=== PATIENT | female | born 1935 | race Caucasian/White ===

== ENCOUNTER 2022-03-19 14:26 | Emergency (ER) | payer OTHER, SELFPAY ==
--- NOTE | ~2022-03-19 | CT_ITS ---
EXAMINATION: CT brain wo con INDICATION: Altered mental status COMPARISON: None TECHNIQUE: Standard unenhanced head CT. The dose-length product (DLP) was 605.33 mGy-cm. The mA was a djusted according to patient size. Iterative reconstruction technique was employed. FINDINGS: There is no acute intraparenchymal hemorrhage. No evidence of mass lesion. No evidence of a cute infarction. There is mild periventricular and subcortical hypodensity probably related to small vessel ischemic disease. There is moderate prominence of the sulci and ventricles related to cerebral atrophy. Intracranial calcified cerebral atherosclerosis is noted. There are no extra-axial collecti ons. There is no mass effect or midline shift. The orbits and soft tissues are unremarkable. The visu alized sinuses and mastoid air cells are well aerated. IMPRESSION: 1. No acute intracranial abnormality. 2. Age related findings. Reviewed, dictated and finalized at location B.
--- NOTE | 2022-03-19 14:32 | ECG_ITS ---
Measurements Intervals [place] Rate: 81 P: VT: 0 QRS: -17 QRSD: 86 T: 18 QT: 379 QTc: 441 Interpretive Statements ATRIAL FIBRILLATION NONSPECIFIC ST CHANGES LARGE AMOUNT OF BASELINE ARTIFACT PRESENT NO PREVIOUS ECG AVAILABLE FOR COMPARISON Electronically Signed On 03-20-2022 13:36:02 CDT by Adore Low M.D.
[2022-03-19 14:37] LABS: Glucose Point of Care 106 mg/dl (65-105)
[2022-03-19 14:54] VITALS: BP 159/71; PULSE 80; RESP 20; TEMP 36.8; O2SAT 97
--- NOTE | 2022-03-19 14:58 | ED.AMS ---
HPI - Altered Mental Status General Chief Complaint: Altered Mental Status Stated Complaint: unresponsive Time Seen by Provider: 03/19/22 14:43 Source: EMS Mode of arrival: EMS Limitations: no limitations History of Present Illness HPI narrative: Patient is an 86-year-old female brought in by EMS due to decreased responsiveness per [facility] staff but according to EMS when they arrived patient was alert and awake and responsive. [facility] staff states that patient was dancing earlier today, and when they checked up on her she was found slumped in a chair . Patient has a history of dementia and a poor historian. Review of Systems Review of Systems: All systems reviewed & are unremarkable except as noted in HPI and below ROS unobtainable: Yes other (Dementia) Constitutional: Constitutional: Reports as per HPI PMFSH Comments Past medical history: Dementia Family history: Unknown Social history: Unknown if patient ever smoked, lives at a [facility] Exam Const: General: cooperative, healthy appearing, comfortable, no acute distress, well developed, alert and awake Orientation/consciousness: oriented to person and oriented to place Limitations: no limitations HENMT: Head: normal to inspection, normocephalic and atraumatic Ears: hearing grossly normal bilaterally, TM normal on the right and TM normal on the left General nose exam: Normal external nose present, Normal nares present and No nasal discharge present Face and sinus: normal facial exam Mouth: Yes Normal oral and palatal mucosa present, Yes lip normal, Yes tongue normal and Yes oropharynx normal Throat: posterior oropharynx normal, tonsils normal and uvula midline Eyes: General: appearance normal, both eyes and all related structures Pupils: Equal, round and reactive pupils present EOM: EOMs intact bilaterally Neck: Neck: normal visual inspection, full ROM, no lymphadenopathy and no meningeal signs Chest: Chest palpation & inspection: normal inspection of the chest Resp: Effort & Inspection: normal respiratory effort, able to speak in complete sentences, no respiratory distress and not tachypneic Auscultation: clear to auscultation bilaterally, no crackles, no rales, no rhonchi and no wheezes Cardio: Rate: regular rate Rhythm: regular rhythm GI: Inspection: normal to inspection GI Palp: No abdominal tenderness, Yes Soft to palpation, No Tenderness to palpation present (GI), No Guarding due to palpation present (GI), No Rigid due to palpation and No Rebound tenderness present Auscultation: normal bowel sounds : General: Yes no CVA tenderness Back/Spine/Pelvis: Back: no CVA tenderness Skin: General skin exam: normal color, no rashes or lesions noted, elasticity normal and turgor normal Neuro: General: oriented to person, oriented to place, tone normal, moves all extremities, Normal light touch and pain sensation, no meningeal signs, no focal motor deficits, CN's II-XI intact bilaterally and No confusion Cranial nerves: Yes Equal, round and reactive pupils present Speech: No Abnormal speech present Sensory Exam: No Sensory deficit (Neuro) Extrem: General: normal to inspection, full ROM and capillary refill normal Psych: Appearance: grossly normal and well kempt Mental Status: mental status grossly normal Speech and movement: Normal speech and movement present Affect: normal affect Attitude: cooperative Course Course Emergency Course: Patient reexamined at 1700, patient alert awake and has no complaints. No episodes of unresponsiveness throughout her ER stay. Vital Signs Vital signs: Vital Signs Temperature 36.8 C 03/19/22 14:54 Pulse Rate 80 03/19/22 14:54 Respiratory Rate 20 03/19/22 14:54 Blood Pressure 159/71 H 03/19/22 14:54 Pulse Oximetry 97 03/19/22 14:54 Temperature 36.8 C 03/19/22 14:54 Pulse Rate 80 03/19/22 14:54 Respiratory Rate 20 03/19/22 14:54 Blood Pressure 159/71 H 03/19/22 14:54 Pulse Oximetry 97
[2022-03-19 15:10] LABS: Add Urine Microscopic? YES; Appearance Urine Cloudy (Clear); Bacteria Urine Trace /hpf; Bilirubin Urine Negative (Negative); Blood Urine Negative (Negative); Color Urine Yellow (Yellow); Glucose Urine UA Negative (Negative); Ketones Urine Negative (Negative); Leukocyte Esterase Ur 3+ LEU/UL (Negative); Mucus Urine Rare /lpf; Nitrate Urine Negative (Negative); Protein Urine Negative (Negative); RBC Urine 0-2 /hpf (0-2); Specific Grav Ur 1.005 (1.001-1.035); Squamous Epithelial Cell Urine Occasional /hpf (Few); Urobilinogen Urine Negative mg/dL (<2.0); WBC Urine 16-20 /hpf
[2022-03-19 15:45] LABS: Basophils Percent Auto 0.6 % (0.2-1.2); Eosinophils Absolute Auto 0.2 K/mm3 (0-0.3); Eosinophils Percent Auto 2.6 % (0-4.4); Hematocrit 43.8 % (37.0-47.0); Hemoglobin 14.2 g/dL (12.0-15.0); Immature Granulocyte Absolute 0.02 K/mm3 (0.00-0.031); Immature Granulocyte Percent A 0.3 % (0-0.5); Lymphocytes Absolute Auto 1.53 K/mm3 (0.9-3.2); Lymphocytes Percent Auto 23.8 % (18.3-44.2); Mean Corpuscular HGB Conc 32.4 g/dl (32-36); Mean Corpuscular Hemoglobin 31.1 pg (26-34); Mean Corpuscular Volume 96.1 fl (80-100); Mean Platelet Volume 10.2 fl (7.4-10.4); Monocytes Absolute Auto 0.4 K/mm3 (0.1-0.6); Monocytes Percent Auto 6.7 % (2.6-8.5); Neutrophils Absolute Auto 4.2 K/mm3 (1.3-6.7); Platelet Count Result 270 k/mm3 (150-375); Red Blood Count 4.56 M/mm3 (4.2-5.4); Red Cell Distribution Width 13.2 % (11.5-14.5); White Blood Count 6.4 K/mm3 (4.5-10.0)
--- NOTE | 2022-03-19 16:28 | PC.NURSE ---
tech attempted blood draw x2 without success. script writer obtained blood, however hemolyzed and needs redrawn. script writer attempted again, unsuccessfully. called noc engineer for assistance for redraw. spoke with adam and agrees to draw.
--- NOTE | 2022-03-19 16:33 | PC.NURSE ---
patient is alert to self. talking in full sentences, requesting bedpan often. no deficits noted
[2022-03-19 16:52] LABS: Prothrombin Time 13.1 Seconds (11.1-14.7)
[2022-03-19 16:53] LABS: Alanine Aminotransferase 23 U/L (4-35); Albumin Level 4.1 g/dL (3.5-5.1); Alkaline Phosphatase 142 U/L (38-126); Anion Gap 6 mmol/L (8-16); Aspartate Amino Transferase 36 U/L (14-36); Bilirubin,Total 0.4 mg/dL (0.2-1.3); Blood Urea Nitrogen 25 mg/dL (7-17); Calcium 8.9 mg/dL (8.4-10.2); Carbon Dioxide 32 mmol/L (22-30); Chloride 102 mmol/L (98-107); Estimated CRCL calculation 25 ml/min; Estimated Glomerular Filt Rate 43; Glucose 94 mg/dL (65-110); Sodium 140 mmol/L (137-145)
--- NOTE | 2022-03-19 17:14 | PC.NURSE ---
at 1713 spoke with alejandro hutchinson to arrange s transport nh return to [facility]
--- NOTE | 2022-03-19 17:18 | PC.NURSE ---
attempted to call [facility] to give report. spoke with [place] and no one was able to take report. update given to renuka, daughter.
--- NOTE | 2022-03-19 17:34 | PC.NURSE ---
food tray ordered for pt
[2022-03-19 18:18] VITALS: BP 174/82; PULSE 84; RESP 20; TEMP 36.2; O2SAT 98
== END 2022-03-19 18:22 ==
PROVIDERS: Emergency Medicine; Emergency Provider Emergency Medicine
DX: R41.82 Altered mental status, unspecified (principal); N39.0 Urinary tract infection, site not specified; F03.90 Unspecified dementia, unspecified severity, without behavioral disturbance, psychotic disturbance, mood disturbance, and anxiety; I48.91 Unspecified atrial fibrillation
CPT/HCPCS: 36415; 70450; 80053; 81001; 82948; 85025; 85610; 85730; 87077; 87086; 87186; 93005; 96365; 99284; J0696

== ENCOUNTER 2022-08-14 00:31 | Emergency (ER) | payer OTHER, SELFPAY ==
--- NOTE | ~2022-08-14 | CT_ITS ---
EXAMINATION: CT cervical spine wo con DATE: 08/14/2022 01:20 INDICATION: Neck pain after fall TECHNIQUE: Computed tomography (CT) of the cervical spine was performed without intravenous contrast. The dose-length product was 95 mGy-cm. Automated exposure control and iterative reconstruction techn ique were employed. COMPARISON: No prior studies for comparison. FINDINGS: Normal cervical lordosis. Vertebral body heights are maintained. There is mild multilevel d egenerative disc disease. There is mild multilevel uncinate and facet hypertrophy. Odontoid process w ithin normal limits. No evidence for perched facet. Craniovertebral junction is normal. There is aquino tid atherosclerosis. Lung apices are unremarkable. No significant paraspinal soft tissue abnormality. IMPRESSION: 1. No acute abnormality of the cervical spine. Reviewed, dictated and finalized at location A.
--- NOTE | ~2022-08-14 | XR_ITS ---
XR pelvis 1-2V 08/14/2022 01:27 Indication: Status post fall. Pelvic pain. Procedure: AP view of the pelvis Comparison: No prior studies for comparison. Findings: Pelvic rings are intact. There is osteoarthritis of the hips. There is lower lumbar spondyl osis. There are pelvic phleboliths. No acute fracture or traumatic malalignment. Impression: 1: No acute fracture. Reviewed, dictated and finalized at location A. Impression: 1: No acute fracture.
--- NOTE | ~2022-08-14 | XR_ITS ---
XR chest 1V portable 08/14/2022 01:27 Indication: Status post fall. Cough, wheezing and congestion. Sore throat. Procedure: AP view of the chest Comparison: No prior studies for comparison. Findings: Heart size upper normal. No focal air space disease, pulmonary edema, pleural effusion or s uspected pneumothorax. There is scoliosis. There is atherosclerosis and ectasia of the aorta. Impression: 1: No acute cardiopulmonary disease. Reviewed, dictated and finalized at location A. Impression: 1: No acute cardiopulmonary disease.
--- NOTE | ~2022-08-14 | CT_ITS ---
EXAMINATION: CT brain wo con DATE: 08/14/2022 01:19 INDICATION: Status post fall. Head injury. TECHNIQUE: Computed tomography (CT) of the head was performed without intravenous contrast. The dose- length product was 605.33 mGy-cm. COMPARISON: CT dated 03/19/2022 FINDINGS: Mild generalized brain parenchymal volume loss. There are scattered mild periventricular an d subcortical white matter changes, most likely related to small vessel ischemic disease (microangiop athy). No ventriculomegaly or midline shift. Basilar cisterns are patent. There is intracranial ather osclerosis. There is mucosal thickening of the left maxillary and ethmoid sinuses. Mastoids are pneum atized. No depressed skull fractures. There is hyperostosis frontalis interna. IMPRESSION: 1. No acute intracranial abnormality. Reviewed, dictated and finalized at location A.
[2022-08-14 00:43] VITALS: BP 130/84; PULSE 68; RESP 24; TEMP 36.4; O2SAT 100
--- NOTE | 2022-08-14 00:53 | ECG_ITS ---
Measurements Intervals [place] Rate: 70 P: 73 PA: 152 QRS: -21 QRSD: 89 T: -5 QT: 409 QTc: 443 Interpretive Statements SINUS RHYTHM SUPRAVENTRICULAR TRIGEMINY BORDERLINE ST-T WAVE ABNORMALITY- INFERIOR LEADS BASELINE ARTIFACT- I, III, AVL, V2 ABNORMAL ECG COMPARED TO ECG 03/19/2022 14:34:16 SINUS RHYTHM NOW PRESENT Electronically Signed On 08-14-2022 8:52:04 CDT by Jose Roberto Rolon D.O.
[2022-08-14 01:47] LABS: Basophils Percent Auto 0.4 % (0.2-1.2); Eosinophils Absolute Auto 0.2 K/mm3 (0-0.3); Eosinophils Percent Auto 3.1 % (0-4.4); Hematocrit 38.5 % (37.0-47.0); Hemoglobin 12.7 g/dL (12.0-15.0); Immature Granulocyte Absolute 0.05 K/mm3 (0.00-0.031); Immature Granulocyte Percent A 0.7 % (0-0.5); Lymphocytes Absolute Auto 2.47 K/mm3 (0.9-3.2); Lymphocytes Percent Auto 32.4 % (18.3-44.2); Mean Corpuscular Hemoglobin 32.1 pg (26-34); Mean Corpuscular Volume 97.2 fl (80-100); Mean Platelet Volume 9.6 fl (7.4-10.4); Monocytes Absolute Auto 0.4 K/mm3 (0.1-0.6); Monocytes Percent Auto 5.6 % (2.6-8.5); Neutrophils Absolute Auto 4.4 K/mm3 (1.3-6.7); Neutrophils Percent Auto 57.8 % (45.5-73.1); Platelet Count Result 280 k/mm3 (150-375); Red Blood Count 3.96 M/mm3 (4.2-5.4); Red Cell Distribution Width 13.6 % (11.5-14.5); White Blood Count 7.6 K/mm3 (4.5-10.0)
[2022-08-14 02:03] LABS: Anion Gap 10 mmol/L (8-16); Blood Urea Nitrogen 27 mg/dL (7-17); Calcium 8.8 mg/dL (8.4-10.2); Carbon Dioxide 30 mmol/L (22-30); Chloride 101 mmol/L (98-107); Estimated Glomerular Filt Rate 47; Glucose 99 mg/dL (65-110); Potassium 3.7 mmol/L (3.4-5.0); Sodium 141 mmol/L (137-145)
--- NOTE | 2022-08-14 02:56 | ED.FALL ---
HPI - Fall General Chief Complaint: Fall <Karely Zuluaga PA-C - Last Filed: 08/14/22 03:36> Stated Complaint: FALL, HEAD INJURY <Karely Zuluaga PA-C - Last Filed: 08/14/22 03:36> Time Seen by Provider: 08/14/22 00:40 <Karely Zuluaga PA-C - Last Filed: 08/14/22 03:36> Source: patient <PEYTON Rodríguez Last Filed: 08/14/22 03:36> Mode of arrival: wheelchair <PEYTON Rodríguez Last Filed: 08/14/22 03:36> Limitations: dementia <Karely Zuluaga PA-C - Last Filed: 08/14/22 03:36> History of Present Illness HPI Narrative: This is an 86-year-old female that presents to the emergency department after a fall at her nursing facility today. Reportedly patient had an unwitnessed fall. She was found seated on the floor. Patient is reporting a head injury and headache. Otherwise she has no localizing complaints. Denies chest pain, abdominal pain, or joint pain. <Karely Zuluaga PA-C - Last Filed: 08/14/22 03:36> Related Data Allergies/Adverse Reactions: Allergies Allergy/AdvReac Type Severity Reaction Status Date / Time nitrofurantoin Allergy Unknown Other Verified 08/14/22 04:51 [From Macrobid] Sulfa (Sulfonamide Allergy Unknown Other Verified 08/14/22 04:51 Antibiotics) <PEYTON Rodríguez Last Filed: 08/14/22 03:36> Review of Systems Review of Systems: CONSTITUTIONAL: Denies fever CARDIOVASCULAR: Denies chest pain GASTROINTESTINAL: Denies vomiting MUSCULOSKELETAL: Denies back pain, joint pain, or myalgia. NEUROLOGIC: Reports headache <PEYTON Rodríguez Last Filed: 08/14/22 03:36> All systems reviewed & are unremarkable except as noted in HPI and below <PEYTON Rodríguez Last Filed: 08/14/22 03:36> [facility] Past Medical History Medical History: Medical History (Updated 09/24/22 @ 04:47 by Kathrine Perez MD) History of dementia History of hypertension <Karely Zuluaga PA-C - Last Filed: 08/14/22 03:36> Social History Social History: Social History (Updated 08/14/22 @ 03:32 by Karely Zuluaga PA-C) Smoking status: Never smoker <Karely Zuluaga PA-C - Last Filed: 08/14/22 03:36> Exam Narrative: GENERAL: Elderly, well-nourished, and in no acute distress. HEAD: Normocephalic. Old bruising noted over the left side of the forehead EYES: PERRLA and EOMI. ENT: Nares clear, no rhinorrhea or epistaxis. Mucous membranes moist. Oropharynx without tonsillar hypertrophy exudate or other lesions. Bilateral TMs pearly scales non-bulging NECK: Supple. No adenopathy or masses. CHEST: Clear to auscultation. No respiratory distress. No wheezes rales or rhonchi HEART: Regular rate and rhythm. No murmur heard. Normal peripheral pulses. BACK: No midline thoracic or lumbar spine tenderness EXTREMITIES: Normal range of motion. No edema or obvious deformity SKIN: Warm, dry, no rash. NEURO: No focal deficits. Alert and oriented x1. PSYCH: Normal mood and affect <Karely Zuluaga PA-C - Last Filed: 08/14/22 03:36> Course Reevaluation(s) Reevaluation #1: Signed out pending imaging and UA. UA is c/w UTI, I did assess pt she denies any back pain and on exam has no flank tenderness. Also has no WBC or fever. Therefore low c/f pyelo. Pt is allergic to macrobid, sulfa, augmentin per [place] paperwork so I will start cipro. Signed out pending final imaging interpretation. <Kathrine Perez MD - Last Filed: 08/14/22 14:51> Vital Signs Vital signs: Vital Signs Temperature 97.5 F L 08/14/22 00:43 Pulse Rate 68 08/14/22 00:43 Respiratory Rate 24 H 08/14/22 00:43 Blood Pressure 130/84 08/14/22 00:43 Pulse Oximetry 100 08/14/22 00:43 Oxygen Delivery Room Air 08/14/22 00:43 Temperature 97.5 F L 08/14/22 00:43 Pulse Rate 68 08/14/22 07:49 Respiratory Rate 18 08/14/22 07:49 Blood Pressure 140/70 08/14/22 07:49 Pulse Oximetry 98 08/14/22 07:49 Oxygen Delivery Room Air 08/14/22 00:43 <Karely Zuluaga
[2022-08-14 03:48] LABS: Appearance Urine Clear (Clear); Bilirubin Urine Negative (Negative); Color Urine Yellow (Yellow); Glucose Urine UA Negative (Negative); Ketones Urine Negative (Negative); Leukocyte Esterase Ur 3+ LEU/UL (Negative); Nitrate Urine Positive (Negative); Protein Urine Negative (Negative); Urobilinogen Urine 0.2 mg/dL (<2.0)
[2022-08-14 03:54] LABS: Bacteria Urine Trace /hpf; Mucus Urine Rare /lpf; WBC Clumps Urine Present /HPF; WBC Urine 51-75 /hpf
[2022-08-14 03:55] LABS: Add Urine Microscopic? YES; Blood Urine Trace-Intact (Negative)
[2022-08-14 04:24] VITALS: BP 142/49; PULSE 73; RESP 17; O2SAT 98
[2022-08-14 05:24] VITALS: BP 132/84; PULSE 79; RESP 18; O2SAT 98
[2022-08-14] MEDS: CIPROFLOXACIN 250 MG TABLET PO (05:25)
--- NOTE | 2022-08-14 06:12 | PC.NURSE ---
Patient report given to RN at facility. THis RN asked for her name and she states, Are you really going to send her back to us? THis RN replied that the patient was being discharged and an ambulance will be transporting her back to the facility. Then the facility hung up the phone on this RN.
[2022-08-14 07:08] VITALS: BP 140/70; PULSE 68; RESP 18; O2SAT 96
[2022-08-14 07:49] VITALS: BP 140/70; PULSE 68; RESP 18; O2SAT 98
== END 2022-08-14 07:53 ==
PROVIDERS: Physician Assistant; Emergency Provider Emergency Medicine; PCP Family Medicine
DX: S09.90XA Unspecified injury of head, initial encounter (principal); N39.0 Urinary tract infection, site not specified; F03.90 Unspecified dementia, unspecified severity, without behavioral disturbance, psychotic disturbance, mood disturbance, and anxiety; I10 Essential (primary) hypertension; R00.8 Other abnormalities of heart beat; R94.31 Abnormal electrocardiogram [ECG] [EKG]; W19.XXXA Unspecified fall, initial encounter
CPT/HCPCS: 36415; 70450; 71045; 72125; 72170; 80048; 81001; 85025; 87077; 87086; 87186; 93005; 99284; A9270

== ENCOUNTER 2022-08-22 17:55 | Emergency (ER) | payer OTHER, SELFPAY ==
--- NOTE | ~2022-08-22 | CT_ITS ---
EXAMINATION: CT brain wo con DATE: 08/22/2022 18:57 INDICATION: ams . TECHNIQUE: Computed tomography (CT) of the head was performed without intravenous contrast. The mA wa s adjusted according to patient size. Iterative reconstruction technique was employed. The dose-lengt h product was 605.33 mGy-cm. COMPARISON: 08/14/2022 FINDINGS: No acute intracranial hemorrhage or extra-axial fluid collection. No hydrocephalus, mass, or herniation. No acute ischemic infarct. Unremarkable dural venous sinus attenuation. No acute osseous abnormality. Hyperostosis frontalis. Left maxillary mucosal thickening, the remaining spaces are clear. Mild chronic white matter change and atrophy. Atherosclerotic intracranial calcifications. IMPRESSION: No acute intracranial process. Reviewed, dictated and finalized at location K.
--- NOTE | 2022-08-22 18:07 | ED.GENADULT ---
HPI - General Adult General Chief complaint: Altered Mental Status <PEYTON Mckeon Last Filed: 08/23/22 01:35> Stated complaint: unresponsive episode <PEYTON Mckeon Last Filed: 08/23/22 01:35> Time Seen by Provider: 08/22/22 18:07 <PEYTON Mckeon Last Filed: 08/23/22 01:35> Source: patient, EMS and old records reviewed <PEYTON Mckeon Last Filed: 08/23/22 01:35> Mode of arrival: EMS <PEYTON cMkeon Last Filed: 08/23/22 01:35> Limitations: dementia <PEYTON Mckeon Last Filed: 08/23/22 01:35> History of Present Illness HPI narrative: Patient is an 86 y/o female who presents to the ED via EMS with report of AMS. Patient is a resident [facility]. Per EMS report staff found patient in her room unresponsive, only responding to painful stimuli. She was then sent here. Patient alert and oriented to herself upon arrival to the ED. Per her records, this is her baseline. She does have a history of dementia. Patient denying any acute complaints at this time. <PEYTON Mckeon Last Filed: 08/23/22 01:35> Related Data Allergies/adverse reactions: Allergies Allergy/AdvReac Type Severity Reaction Status Date / Time nitrofurantoin Allergy Unknown Other Verified 08/23/22 00:33 [From Macrobid] Sulfa (Sulfonamide Allergy Unknown Other Verified 08/23/22 00:33 Antibiotics) <PEYTON Mckeon Last Filed: 08/23/22 01:35> Review of Systems Review of Systems: ROS unobtainable: Yes unobtainable due to mental status <PEYTON Mckeon Last Filed: 08/23/22 01:35> [facility] Past Medical History Medical History: Medical History (Updated 08/24/22 @ 00:00 by Background Daemon) Anxiety History of dementia History of hypertension <Darlene Dorman PA-C - Last Filed: 08/23/22 01:35> Surgical History Surgical History: Surgical History (Updated 08/22/22 @ 20:01 by Darlene Dorman PA-C) No pertinent past surgical history <Darlene Dorman PA-C - Last Filed: 08/23/22 01:35> Social History Social History: Social History (Updated 08/22/22 @ 20:02 by Darlene Dorman PA-C) Smoking status: Never smoker Living arrangements: senior living <Darlene Dorman PA-C - Last Filed: 08/23/22 01:35> Exam Narrative: GENERAL: Elderly, thin, non-toxic, in no acute distress. HEAD: Normocephalic, atraumatic. EYES: PERRL/EOMI, conjunctivae clear bilaterally. No nystagmus. NECK: Supple. No adenopathy, no masses. RESPIRATORY: Airway patent, respirations nonlabored. Clear to auscultation bilaterally, no rales, rhonchi, wheezing. CARDIOVASCULAR: Regular rate and rhythm without murmurs, rubs, or gallops. Peripheral pulses 2+ and equal bilaterally. ABDOMINAL: Soft, no significant tenderness to palpation, no hepatosplenomegaly. Normoactive BS. MUSCULOSKELETAL: Moves all extremities. Strength/ROM intact. Diffuse venous stasis changes and 1+ edema to lower legs bilaterally. Some redness, but no warmth, wounds. SKIN: Warm, dry, normal color. No rashes. NEURO: A&O X1. Answers some questions. Follows some commands. Moves all extremities. Cranial nerves II-XII grossly intact. No ataxic movements. Equal airborne mission systems superintendent strength bilaterally. PSYCHIATRIC: Appropriate mood and affect. Normal interaction. <Darlene Dorman PA-C - Last Filed: 08/23/22 01:35> Course Course Emergency Course: For this patient encounter, I reviewed the ACADEMY DIRECTOR or PA documentation, treatment plan, and medical decision making <Theodore Neil MD - Last Filed: 08/24/22 00:11> Vital Signs Vital signs: Vital Signs Pulse Rate 72 08/22/22 18:14 Respiratory Rate 28 H 08/22/22 18:14 Pulse Oximetry 99 08/22/22 18:14 Oxygen Delivery Room Air 08/22/22 18:14 Temperature 97.6 F 08/22/22 18:33 Pulse Rate 67 08/22/22 18:33 Respiratory Rate 28
--- NOTE | 2022-08-22 18:08 | ECG_ITS ---
Measurements Intervals [place] Rate: 70 P: 41 MN: 160 QRS: -26 QRSD: 97 T: 6 QT: 412 QTc: 447 Interpretive Statements BASELINE ARTIFACT/REDUCED ECG QUALITY SINUS RHYTHM WITH FREQUENT SUPRAVENTRICULAR PREMATURE COMPLEXES NONSPECIFIC T-WAVE ABNORMALITY COMPARED TO ECG 08/14/2022 02:20:41 NO SIGNIFICANT CHANGE Electronically Signed On 08-23-2022 14:38:23 CDT by Brando Tiwari M.D.
[2022-08-22 18:14] VITALS: PULSE 72; RESP 28; O2SAT 99
[2022-08-22 18:33] VITALS: BP 134/52; PULSE 67; TEMP 36.4
--- NOTE | 2022-08-22 19:22 | PC.NURSE ---
Patient is alert and oriented x1; EMS reported her baseline mentation as A&Ox1.
[2022-08-22 19:28] LABS: Basophils Percent Auto 0.6 % (0.2-1.2); Eosinophils Absolute Auto 0.2 K/mm3 (0-0.3); Eosinophils Percent Auto 2.6 % (0-4.4); Hematocrit 39.7 % (37.0-47.0); Hemoglobin 13.3 g/dL (12.0-15.0); Immature Granulocyte Absolute 0.01 K/mm3 (0.00-0.031); Immature Granulocyte Percent A 0.2 % (0-0.5); Lymphocytes Absolute Auto 1.95 K/mm3 (0.9-3.2); Lymphocytes Percent Auto 29.9 % (18.3-44.2); Mean Corpuscular HGB Conc 33.5 g/dl (32-36); Mean Corpuscular Volume 95.4 fl (80-100); Mean Platelet Volume 9.7 fl (7.4-10.4); Monocytes Absolute Auto 0.5 K/mm3 (0.1-0.6); Monocytes Percent Auto 8.1 % (2.6-8.5); Neutrophils Absolute Auto 3.8 K/mm3 (1.3-6.7); Neutrophils Percent Auto 58.6 % (45.5-73.1); Platelet Count Result 335 k/mm3 (150-375); Red Blood Count 4.16 M/mm3 (4.2-5.4); Red Cell Distribution Width 14.2 % (11.5-14.5); White Blood Count 6.5 K/mm3 (4.5-10.0)
[2022-08-22 19:37] LABS: Lactic Acid Reflex 1.4 mmol/L (0.7-2.0)
[2022-08-22 19:38] LABS: Alanine Aminotransferase 28 U/L (6-35); Alkaline Phosphatase 149 U/L (38-126); Anion Gap 8 mmol/L (8-16); Aspartate Amino Transferase 32 U/L (14-36); Bilirubin,Total 0.4 mg/dL (0.2-1.3); Blood Urea Nitrogen 34 mg/dL (7-17); Calcium 8.9 mg/dL (8.4-10.2); Carbon Dioxide 27 mmol/L (22-30); Chloride 101 mmol/L (98-107); Estimated Glomerular Filt Rate 43; Glucose 102 mg/dL (65-110); Potassium 4.1 mmol/L (3.4-5.0); Sodium 136 mmol/L (137-145)
[2022-08-22 19:40] LABS: Creatine Kinase 54 U/L (30-135)
[2022-08-22 19:50] LABS: Troponin I < 0.012 ng/mL (0.000-0.034)
[2022-08-22 21:12] LABS: Appearance Urine Clear (Clear); Bilirubin Urine Negative (Negative); Blood Urine Negative (Negative); Color Urine Yellow (Yellow); Glucose Urine UA Negative (Negative); Ketones Urine Negative (Negative); Leukocyte Esterase Ur Negative LEU/UL (Negative); Nitrate Urine Negative (Negative); Protein Urine Negative (Negative); Specific Grav Ur 1.015 (1.001-1.035); Urobilinogen Urine 0.2 mg/dL (<2.0)
[2022-08-22 21:22] LABS: Add Urine Microscopic? NO
--- NOTE | 2022-08-22 23:34 | PC.NURSE ---
Report to ROSANA Aguilar @ [facility].
--- NOTE | 2022-08-22 23:38 | PC.NURSE ---
Per [facility], ETA for BLS truck is 0100.
== END 2022-08-23 03:30 ==
PROVIDERS: Physician Assistant; Emergency Provider Emergency Medicine; PCP Family Medicine
DX: R41.82 Altered mental status, unspecified (principal); F03.90 Unspecified dementia, unspecified severity, without behavioral disturbance, psychotic disturbance, mood disturbance, and anxiety; I10 Essential (primary) hypertension; F41.9 Anxiety disorder, unspecified
CPT/HCPCS: 36415; 70450; 80053; 81003; 82550; 83605; 84484; 85025; 93005; 99284

== ENCOUNTER 2023-04-08 05:24 | Inpatient (IN) | payer MEDICARE, MEDICAID, SELFPAY ==
[2023-04-08] VITALS (13 sets, daily range): BP systolic 116–160; BP diastolic 53–91; PULSE 57–124; RESP 14–26; TEMP 36.5–36.6; O2SAT 92–98; BMI 19.6
--- NOTE | ~2023-04-08 | US_ITS ---
EXAMINATION: US venous doppler [facility] DATE: 04/09/2023 12:37 INDICATION: Bilateral lower limb swelling TECHNIQUE: Anand scale images without and with compression and Doppler images of the bilateral lower e xtremity veins were obtained. COMPARISON: None FINDINGS: The right common femoral vein, profunda femoral vein, femoral vein, popliteal vein, peroneal trunk, p osterior tibial veins, and greater saphenous vein are patent. There is thrombosis in the left popliteal and peroneal veins. The left common femoral vein, profunda femoral vein, femoral vein, posterior tibial veins, and greater saphenous vein are patent. IMPRESSION: 1. Thrombosis in the left popliteal and peroneal veins. These findings were discussed with the patien t's nurse, Eleonora on [address] [place] [address], at 1248 hours on 04/09/2023. Reviewed, dictated and finalized at location A. IMPRESSION: 1. Thrombosis in the left popliteal and peroneal veins. These findings were dis cussed with the patient's nurse, Eleonora on [address] [place], [place] [address], at 1248 hours on 04/09/20 23.
--- NOTE | ~2023-04-08 | XR_ITS ---
EXAMINATION: XR surgery orthopedic DATE: 04/11/2023 16:13 INDICATION: Left hip pinning TECHNIQUE: 3 fluoroscopic images of the left hip were obtained during procedure performed by Dr. Flo dalton. Radiologist was not present for the imaging or procedure. The amount of fluoroscopy time used during this procedure was 1.4 minutes. COMPARISON: 04/08/2023 FINDINGS: Previously seen nondisplaced, laterally impacted subcapital fracture of the proximal left femur has b een fixed with 3 cannulated lag screws. The tips of the screws do not project beyond the margins of t he articular cortex of the femoral head. Alignment remains unchanged. No new fractures identified. 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 IMPRESSION: 1. Fluoroscopy utilized during lag screw fixation of a nondisplaced slightly impacted subcapital frac ture of the proximal left femur. Reviewed, dictated and finalized at location A. IMPRESSION: 1. Fluoroscopy utilized during lag screw fixation of a nondisplaced slightly im pacted subcapital fracture of the proximal left femur.
--- NOTE | ~2023-04-08 | XR_ITS ---
XR hip BI 2V w AP pelvis 04/08/2023 09:09 Indication: Status post fall. Confusion. Left hip pain. Procedure: AP pelvis and 2 views each hip Comparison: 08/14/2022 Findings: There is a nondisplaced subcapital fracture of the left femur. Pelvic rings are intact. The re is moderate lower lumbar spondylosis. No other fractures are seen. There is atherosclerosis. Impression: 1: Nondisplaced subcapital fracture of the left femur. Reviewed, dictated and finalized at location B. Impression: 1: Nondisplaced subcapital fracture of the left femur.
--- NOTE | ~2023-04-08 | CT_ITS ---
Noncontrast CT scan of the cervical spine Technique: Multiple contiguous axial [address] images of the cervical spine were obtained and rec onstructed in 2D sagittal and coronal planes on the acquisition scanner. Dose reduction technique was used on this scan by utilizing automated exposure control, adjustment of the mA and/or kV according to patient size. Clinical History: Pain COMPARISON: 08/14/2022 Findings: No fractures or dislocations. There are extensive facet joint degenerative changes through out the cervical spine. There is probable partial fusion across the bilateral facet joints at the C4- C5 level. There is bilateral neural foraminal narrowing at C3-C4. There is probable bilateral neural foraminal narrowing at C5-C6 and C6-C7. The intervertebral disc spaces are preserved. No prevertebra l soft tissue swelling. Impression: No fracture or subluxation of the cervical spine. Moderate degenerative spondylosis, as above. Reviewed, dictated and finalized at [facility]. Impression: No fracture or subluxation of the cervical spine. Moderate degenerative spondylosis, as above.
--- NOTE | ~2023-04-08 | XR_ITS ---
EXAMINATION: XR chest 1V portable 04/08/2023 10:19 INDICATION: Preop PROCEDURE: AP portable chest COMPARISON: 08/14/2022 FINDINGS: The lungs are clear. The cardiomediastinal silhouette is within normal limits. There are no pleural effusions. There is no pneumothorax suspected. There is atherosclerosis of the aorta. No acute osseous abnormality. IMPRESSION: 1: NO ACUTE CARDIOPULMONARY DISEASE. Reviewed, dictated and finalized at location B.
--- NOTE | ~2023-04-08 | CT_ITS ---
CT head without contrast Indication: Dementia, status post fall COMPARISON: 08/22/2022 Technique: Serial scans were obtained through the brain without the administration of contrast. Dose reduction technique was used on this scan by utilizing automated exposure control and iterative recon struction technique. The dose-length product (DLP) was 605.33 mGy-cm. Findings: There is no evidence of intracranial hemorrhage, mass lesion, or acute infarct. The ventri cles and subarachnoid spaces are dilated, consistent with mild to moderate atrophy. Low attenuation regions are seen within the periventricular white matter bilaterally, likely representing changes fro m chronic microvascular ischemic disease. There is no evidence of edema, mass effect or midline shif t. The visualized paranasal sinuses and mastoid air cells are clear. Impression: No intracranial hemorrhage, mass, or acute infarct. Atrophy and chronic white matter changes, as above. Reviewed, dictated and finalized at location . Impression: No intracranial hemorrhage, mass, or acute infarct. Atrophy and chronic white matter changes, as above.
--- NOTE | 2023-04-08 07:19 | PC.NURSE ---
Upon BSSR, pt found standing at bedside, pt assisted to bed and was tearful and stating she wanted to go home. Bed alarm placed under pt.
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
--- NOTE | 2023-04-08 10:07 | ECG_ITS ---
Measurements Intervals [place] Rate: 116 P: 59 CT: 128 QRS: -32 QRSD: 85 T: 48 QT: 305 QTc: 424 Interpretive Statements SINUS TACHYCARDIA ATRIAL PREMATURE COMPLEXES LEFT AXIS DEVIATION BASELINE ARTIFACT- I, II, III, AVR, AVL, AVF, V1 ABNORMAL ECG COMPARED TO ECG 08/22/2022 18:31:05 SINUS TACHYCARDIA NOW PRESENT LEFT-AXIS DEVIATION NOW PRESENT Electronically Signed On 04-08-2023 11:49:08 CDT by Jose Roberto Rolon D.O.
--- NOTE | 2023-04-08 10:08 | ED.FALL ---
HPI - Fall General Chief Complaint: Fall Stated Complaint: fall, hip pain Time Seen by Provider: 04/08/23 07:17 Source: EMS Mode of arrival: EMS Limitations: dementia History of Present Illness HPI Narrative: Patient brought to the emergency room by ambulance from intermediate with left hip pain after a fall. Patient uses a walker, went to the bathroom and later found on the floor with left hip pain. No weakness. History of itching skin rash for months, possible scabies, not improving on scabies medication or prednisone. MD complaint: fall Related Data Home Medications Medication Instructions Recorded Confirmed Preparation H 1 inch RECTAL PRN PRN Hemorrhoids 04/08/23 04/08/23 acetaminophen 325 mg tablet 325 mg PO PRN PRN Pain, Mild 04/08/23 04/08/23 amlodipine 5 mg tablet 5 mg PO DAILY 04/08/23 04/08/23 aspirin 81 mg tablet 81 mg PO DAILY 04/08/23 04/08/23 benzonatate 100 mg capsule 100 mg PO PRN PRN Cough 04/08/23 04/08/23 buspirone 5 mg tablet 5 mg PO BID 04/08/23 04/08/23 cholecalciferol (vitamin D3) 25 25 mcg PO DAILY 04/08/23 04/08/23 mcg (1,000 unit) tablet (Vitamin D3) clobetasol 0.05 % topical cream 1 applic topical BID 04/08/23 04/08/23 colchicine 0.6 mg tablet 0.6 mg PO DAILY 04/08/23 04/08/23 cranberry extract 425 mg capsule 425 mg PO DAILY 04/08/23 04/08/23 famotidine 10 mg tablet 10 mg PO BID 04/08/23 04/08/23 furosemide 40 mg tablet 40 mg PO DAILY 04/08/23 04/08/23 ketoconazole 2 % topical cream 1 applic topical BID 04/08/23 04/08/23 losartan 50 mg tablet 50 mg PO BID 04/08/23 04/08/23 melatonin 5 mg tablet 5 mg PO DAILY 04/08/23 04/08/23 metoprolol succinate 50 mg 50 mg PO DAILY 04/08/23 04/08/23 tablet,extended release 24 hr montelukast 10 mg tablet 10 mg PO DAILY 04/08/23 04/08/23 multivitamin with minerals (Daily 1 tablet PO DAILY 04/08/23 04/08/23 Multivitamin-Minerals tablet) mupirocin 2 % topical ointment 1 applic topical PRN PRN BLE 04/08/23 04/08/23 redness permethrin 5 % topical cream 1 applic topical WEEKLY 04/08/23 04/08/23 sennosides 8.6 mg tablet 8.6 mg PO PRN PRN Constipation 04/08/23 04/08/23 Allergies Allergy/AdvReac Type Severity Reaction Status Date / Time nitrofurantoin Allergy Unknown Other Verified 08/23/22 00:33 [From Macrobid] Sulfa (Sulfonamide Allergy Unknown Other Verified 08/23/22 00:33 Antibiotics) amoxicillin [From Augmentin] Allergy Unknown Verified 04/08/23 05:34 clavulanic acid Allergy Unknown Verified 04/08/23 05:34 [From Augmentin] prochlorperazine Allergy Unknown Verified 04/08/23 05:34 [From Compazine] Review of Systems Review of Systems: ROS unobtainable: Yes unobtainable due to mental status PMFSH Past Medical History Medical History Dementia Depression with anxiety Gastroesophageal reflux disease Gout Hypertension Surgical History Surgical History No pertinent past surgical history Family History Family History (Updated 04/08/23 @ 23:15 by Diana Rahman PA-C) Other Family history unknown Social History Social History Social History: Surrogate medical decision maker: Agapito Betancourt or Cynthia Lyles (children). Code status: Full code. Smoking status: Never smoker Alcohol intake: never Substance use: never Lack of Transportation: No Lack of Food: Never True Current Housing: I Have Housing Concerned About Future Housing: No Difficulty Paying Gas/Electric Bills: No Difficulty Paying for Meds: No Currently Unemployed: No Education: Don't Know Difficulty w/ Childcare or Family Care: No Living arrangements: intermediate Spiritual care concerns: No Exam Narrative: General appearance: Well-developed, well-nourished Skin: Papular skin rash Head: Normocephalic, nontraumatic Eyes: Clear conjunctiva
[2023-04-08] MEDS: MORPHINE SULFATE (*CRX) 2 MG/ML INJ IV PUSH (10:51)
[2023-04-08 11:10] LABS: Basophils Percent Auto 0.2 % (0.2-1.2); Eosinophils Absolute Auto 0.1 K/mm3 (0-0.3); Eosinophils Percent Auto 0.6 % (0-4.4); Hematocrit 41.6 % (37.0-47.0); Hemoglobin 13.7 g/dL (12.0-15.0); Immature Granulocyte Absolute 0.05 K/mm3 (0.00-0.031); Immature Granulocyte Percent A 0.4 % (0-0.5); Lymphocytes Absolute Auto 0.71 K/mm3 (0.9-3.2); Lymphocytes Percent Auto 5.8 % (18.3-44.2); Mean Corpuscular HGB Conc 32.9 g/dl (32-36); Mean Corpuscular Hemoglobin 32.5 pg (26-34); Mean Corpuscular Volume 98.8 fl (80-100); Mean Platelet Volume 9.9 fl (7.4-10.4); Monocytes Absolute Auto 0.6 K/mm3 (0.1-0.6); Monocytes Percent Auto 5.2 % (2.6-8.5); Neutrophils Absolute Auto 10.7 K/mm3 (1.3-6.7); Neutrophils Percent Auto 87.8 % (45.5-73.1); Platelet Count Result 263 k/mm3 (150-375); Red Blood Count 4.21 M/mm3 (4.2-5.4); White Blood Count 12.2 K/mm3 (4.5-10.0)
[2023-04-08 11:14] LABS: Appearance Urine Cloudy (Clear); Bacteria Urine 4+ /hpf; Bilirubin Urine Negative (Negative); Blood Urine Negative (Negative); Color Urine Yellow (Yellow); Glucose Urine UA Negative (Negative); Ketones Urine Negative (Negative); Leukocyte Esterase Ur Negative LEU/UL (Negative); Nitrate Urine Negative (Negative); Non Pathogenic Casts 0-2; Protein Urine Negative (Negative); RBC Urine 0-2 /hpf (0-2); Specific Grav Ur 1.011 (1.001-1.035); Squamous Epithelial Cell Urine None seen /hpf (Few); Urobilinogen Urine 0.2 mg/dL (<2.0); pH Urine 8.5 (5.0-9.0)
[2023-04-08 11:20] LABS: Alanine Aminotransferase 30 U/L (6-35); Albumin Level 3.8 g/dL (3.5-5.1); Alkaline Phosphatase 104 U/L (38-126); Anion Gap 4 mmol/L (8-16); Aspartate Amino Transferase 40 U/L (14-36); Blood Urea Nitrogen 17 mg/dL (7-17); Carbon Dioxide 29 mmol/L (22-30); Chloride 104 mmol/L (98-107); Estimated Glomerular Filt Rate > 60; Glucose 109 mg/dL (65-110); Potassium 4.1 mmol/L (3.4-5.0); Sodium 137 mmol/L (137-145)
[2023-04-08 11:24] LABS: Add Urine Microscopic? YES
[2023-04-08] MEDS: MORPHINE SULFATE (*CRX) 4 MG/ML INJ IV PUSH (11:51)
[2023-04-08] MEDS: ONDANSETRON INJ 4 MG/2 ML VIAL IV PUSH (11:51)
--- NOTE | 2023-04-08 12:22 | PM.CNOR ---
Assessment and Plan Assessment and plan (1) Closed left hip fracture: Qualifiers: Encounter type: initial encounter Qualified Code(s): S72.002A - Fracture of unspecified part of neck of left femur, initial encounter for closed fracture Code(s): S72.002A - Fracture of unspecified part of neck of left femur, initial encounter for closed fracture Status: Acute (2) Dermatitis: Code(s): L30.9 - Dermatitis, unspecified Status: Acute Plan Valgus impacted femoral neck fracture. Risk of displacement. I recommend percutaneous pin fixation with 3 screws. I discussed the risks, benefits, and alternatives to surgery with the patients daughter. Partial weight-bearing and [id number] transfers for 6 weeks. History of Present Illness HPI Consult date: 04/11/23 Consult reason: fracture Chief complaint: Left Hip Fracture Narrative: Patient fell at the [place] [facility]. Brought to the emergency room for evaluation. Patient is agitated and demented. History obtained from family and nursing. Review of Systems Review of Systems: ROS unobtainable: Yes unobtainable due to mental status PMFSH Past Medical History Medical History Dementia Depression with anxiety Gastroesophageal reflux disease Gout Hypertension Surgical History Surgical History No pertinent past surgical history Family History Family History Other Family history unknown Social History Social History Social History: Surrogate medical decision maker: Agapito Betancourt or Cynthia Lyles (children). Code status: Full code. Smoking status: Never smoker Alcohol intake: never Substance use: never Lack of Transportation: No Lack of Food: Never True Current Housing: I Have Housing Concerned About Future Housing: No Difficulty Paying Gas/Electric Bills: No Difficulty Paying for Meds: No Currently Unemployed: No Education: Don't Know Difficulty w/ Childcare or Family Care: No Living arrangements: [facility] Spiritual care concerns: No Meds Home Medications and Allergies Home Medications Medication Instructions Recorded Confirmed Type Preparation H 1 inch RECTAL PRN PRN Hemorrhoids 04/08/23 04/08/23 History acetaminophen 325 mg tablet 325 mg PO PRN PRN Pain, Mild 04/08/23 04/08/23 History amlodipine 5 mg tablet 5 mg PO DAILY 04/08/23 04/08/23 History aspirin 81 mg tablet 81 mg PO DAILY 04/08/23 04/08/23 History benzonatate 100 mg capsule 100 mg PO PRN PRN Cough 04/08/23 04/08/23 History buspirone 5 mg tablet 5 mg PO BID 04/08/23 04/08/23 History cholecalciferol (vitamin D3) 25 25 mcg PO DAILY 04/08/23 04/08/23 History mcg (1,000 unit) tablet (Vitamin D3) clobetasol 0.05 % topical cream 1 applic topical BID 04/08/23 04/08/23 History colchicine 0.6 mg tablet 0.6 mg PO DAILY 04/08/23 04/08/23 History cranberry extract 425 mg capsule 425 mg PO DAILY 04/08/23 04/08/23 History famotidine 10 mg tablet 10 mg PO BID 04/08/23 04/08/23 History furosemide 40 mg tablet 40 mg PO DAILY 04/08/23 04/08/23 History ketoconazole 2 % topical cream 1 applic topical BID 04/08/23 04/08/23 History losartan 50 mg tablet 50 mg PO BID 04/08/23 04/08/23 History melatonin 5 mg tablet 5 mg PO DAILY 04/08/23 04/08/23 History metoprolol succinate 50 mg 50 mg PO DAILY 04/08/23 04/08/23 History tablet,extended release 24 hr montelukast 10 mg tablet 10 mg PO DAILY 04/08/23 04/08/23 History multivitamin with minerals (Daily 1 tablet PO DAILY 04/08/23 04/08/23 History Multivitamin-Minerals tablet) mupirocin 2 % topical ointment 1 applic topical PRN PRN BLE 04/08/23 04/08/23 History redness permethrin 5 % topical cream 1 applic topical WEEKLY 04/08/23 04/08/23 History sennosides 8.6 mg tablet 8.6 mg
[2023-04-08 13:32] LABS: INR 0.9; Prothrombin Time 13.1 Seconds (11.1-14.7)
[2023-04-08 13:33] LABS: Partial Thromboplastin Time 27.1 SECONDS (22.3-36.8)
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
[2023-04-08] MEDS: MORPHINE SULFATE (*CRX) 4 MG/ML INJ 2 MG IV PUSH ×2 (15:57→19:54)
[2023-04-08] MEDS: SODIUM CHLORIDE 0.9% IV 1,000 ML 125 ML IV CONT (16:00)
--- NOTE | 2023-04-08 18:16 | ADMGEN ---
This patient, Tala Betancourt, was admitted to 3 Med Surg Room 305-02 @ 1310. Patient/family oriented to hospital policies and general routines including ID bracelet, bed and alarms, visiting hours, pain management, procedures, bathroom and other care routines, personal items, smoking policy, room service/diet, and visiting hours. Information on how to activate the Rapid Response Team has been discussed. Patient/Family are encouraged to report perceived risks to care and to ask questions if they do not understand what they are told or what they should do.
[2023-04-08] MEDS: HYDROcodone/acetaminophen (*CRX) 5-325 MG TABLET 1 TAB PO (19:54)
[2023-04-09] MEDS: MORPHINE SULFATE (*CRX) 4 MG/ML INJ 1 MG IV PUSH ×3 (03:03→19:15)
[2023-04-09] MEDS: SODIUM CHLORIDE 0.9% IV 1,000 ML 125 ML IV CONT ×3 (05:56→21:33)
[2023-04-09 06:00] VITALS: BP 130/51; PULSE 87; RESP 20; TEMP 36.4; O2SAT 93
[2023-04-09 09:00] LABS: Hematocrit 35.6 % (37.0-47.0); Hemoglobin 11.7 g/dL (12.0-15.0); Mean Corpuscular HGB Conc 32.9 g/dl (32-36); Mean Corpuscular Hemoglobin 32.5 pg (26-34); Mean Corpuscular Volume 98.9 fl (80-100); Mean Platelet Volume 9.6 fl (7.4-10.4); Platelet Count Result 219 k/mm3 (150-375); Red Cell Distribution Width 14.1 % (11.5-14.5); White Blood Count 7.9 K/mm3 (4.5-10.0)
[2023-04-09 09:10] LABS: Anion Gap 3 mmol/L (8-16); Blood Urea Nitrogen 13 mg/dL (7-17); Calcium 8.2 mg/dL (8.4-10.2); Carbon Dioxide 28 mmol/L (22-30); Chloride 107 mmol/L (98-107); Estimated CRCL calculation 31 ml/min; Estimated Glomerular Filt Rate 60; Glucose 100 mg/dL (65-110); Potassium 3.9 mmol/L (3.4-5.0); Sodium 138 mmol/L (137-145)
--- NOTE | 2023-04-09 13:00 | P.PNIM_ITS ---
Progress Note: A&P Assessment and Plan (1) Unwitnessed fall: Code(s): R29.6 - Repeated falls Status: Acute Assessment and Plan: * Reported: ambulated to the bathroom with her walker where she had an unwitnessed fall * Hip xray found left hip fracture * fall precautions * PT/OT when appropriate (2) Closed subcapital fracture of left femur: Qualifiers: Encounter type: initial encounter Qualified Code(s): S72.012A - Unspecified intracapsular fracture of left femur, initial encounter for closed fracture Code(s): S72.012A - Unspecified intracapsular fracture of left femur, initial encounter for closed fracture Status: Acute Assessment and Plan: * Hip xray indicated left femur fracture * Dr. Burrows has been consulted and he recommends percutaneous pin fixation. * Post op care per ortho * Awaiting further instructions as concern for skin disease * Pain medications * DVT prophylaxis would be deferred however was found to have a DVT (3) Left leg cellulitis: Code(s): L03.116 - Cellulitis of left lower limb Status: Acute Assessment and Plan: * Notable reddened area with swelling * Cellulitis noted * Possibly related to scratching and multiple wound areas * Ceftriaxone for cellulitis for now * Trend symptoms (4) Abnormal urinalysis: Code(s): R82.90 - Unspecified abnormal findings in urine Status: Acute Assessment and Plan: * UA appears to be infectious * Ceftriaxone for now * Culture pending * trend urine output * urinary catheter (5) Dermatitis: Code(s): L30.9 - Dermatitis, unspecified Status: Acute Assessment and Plan: * Wound nurse contacted * Appearance inline with with dermatitis * Lotrisone cream ordered * Wound consult * Trend symptoms and appearance (6) Dementia: Qualifiers: Dementia behavioral or psychological symptom: without behavioral, psychotic, or mood disturbance or anxiety Dementia severity: unspecified severity Dementia type: unspecified type Qualified Code(s): F03.90 - Unspecified dementia, unspecified severity, without behavioral disturbance, psychotic disturbance, mood disturbance, and anxiety Code(s): F03.90 - Unspecified dementia, unspecified severity, without behavioral disturbance, psychotic disturbance, mood disturbance, and anxiety Status: Acute Assessment and Plan: * Initiate fall precautions. * Monitor closely for symptoms of delirium * Stable * Trend mood and mentation * promote good sleep wake cycle (7) Hypertension: Qualifiers: Hypertension type: primary hypertension Qualified Code(s): I10 - Essential (primary) hypertension Code(s): I10 - Essential (primary) hypertension Status: Acute Assessment and Plan: * BP 130/51 * Continue home medications * Trend BP * Adjust therapy as indicated (8) Acute DVT (deep venous thrombosis): Qualifiers: DVT location: lower extremity Affected thrombotic vein of extremity: popliteal Laterality: left Qualified Code(s): I82.432 - Acute embolism and thrombosis of left popliteal vein Code(s): I82.409 - Acute embolism and thrombosis of unspecified deep veins of unspecified lower extremity
--- NOTE | 2023-04-09 13:00 | PM.IMPN ---
Progress Note: A&P Assessment and Plan (1) Unwitnessed fall: Code(s): R29.6 - Repeated falls Status: Acute Assessment and Plan: Reported: ambulated to the bathroom with her walker where she had an unwitnessed fall Hip xray found left hip fracture fall precautions PT/OT when appropriate (2) Closed subcapital fracture of left femur: Qualifiers: Encounter type: initial encounter Qualified Code(s): S72.012A - Unspecified intracapsular fracture of left femur, initial encounter for closed fracture Code(s): S72.012A - Unspecified intracapsular fracture of left femur, initial encounter for closed fracture Status: Acute Assessment and Plan: Hip xray indicated left femur fracture Dr. Burrows has been consulted and he recommends percutaneous pin fixation. Post op care per ortho Awaiting further instructions as concern for skin disease Pain medications DVT prophylaxis would be deferred however was found to have a DVT (3) Left leg cellulitis: Code(s): L03.116 - Cellulitis of left lower limb Status: Acute Assessment and Plan: Notable reddened area with swelling Cellulitis noted Possibly related to scratching and multiple wound areas Ceftriaxone for cellulitis for now Trend symptoms (4) Abnormal urinalysis: Code(s): R82.90 - Unspecified abnormal findings in urine Status: Acute Assessment and Plan: UA appears to be infectious Ceftriaxone for now Culture pending trend urine output urinary catheter (5) Dermatitis: Code(s): L30.9 - Dermatitis, unspecified Status: Acute Assessment and Plan: Wound nurse contacted Appearance inline with with dermatitis Lotrisone cream ordered Wound consult Trend symptoms and appearance (6) Dementia: Qualifiers: Dementia behavioral or psychological symptom: without behavioral, psychotic, or mood disturbance or anxiety Dementia severity: unspecified severity Dementia type: unspecified type Qualified Code(s): F03.90 - Unspecified dementia, unspecified severity, without behavioral disturbance, psychotic disturbance, mood disturbance, and anxiety Code(s): F03.90 - Unspecified dementia, unspecified severity, without behavioral disturbance, psychotic disturbance, mood disturbance, and anxiety Status: Acute Assessment and Plan: Initiate fall precautions. Monitor closely for symptoms of delirium Stable Trend mood and mentation promote good sleep wake cycle (7) Hypertension: Qualifiers: Hypertension type: primary hypertension Qualified Code(s): I10 - Essential (primary) hypertension Code(s): I10 - Essential (primary) hypertension Status: Acute Assessment and Plan: BP 130/51 Continue home medications Trend BP Adjust therapy as indicated (8) Acute DVT (deep venous thrombosis): Qualifiers: DVT location: lower extremity Affected thrombotic vein of extremity: popliteal Laterality: left Qualified Code(s): I82.432 - Acute embolism and thrombosis of left popliteal vein Code(s): I82.409 - Acute embolism and thrombosis of unspecified deep veins of unspecified lower extremity Status: Acute Assessment and Plan: Venous Doppler note DVT int he left popliteal and peroneal veins Heparin gtt started will need to be transitioned to DOAC at discharge stable at this time Time Spent With Patient Time: 52 minutes Time with patient: Greater than 35 minutes Subjective Date/time seen: 04/09/23 1300 Interval history: 04/09/23 1300 patient was resting in bed. Patient's daughter was also present. Unable to get a complete review of systems. Patient did state that she was having some pain however really unable to assess set at that time. She does
[2023-04-09] MEDS: COLCHICINE 0.6 MG TABLET PO (13:40)
[2023-04-09 13:41] VITALS: PULSE 109
[2023-04-09] MEDS: FUROSEMIDE 40 MG TABLET PO (13:41)
[2023-04-09] MEDS: METOPROLOL SUCCINATE EXT REL 50 MG TABCR PO (13:41)
[2023-04-09] MEDS: MONTELUKAST SODIUM 10 MG TABLET PO (13:42)
[2023-04-09] MEDS: THERAPEUTIC MULTIVITAMINS/MINERALS TAB (*BKC) 1 TABLET PO (13:42)
[2023-04-09] MEDS: FAMOTIDINE 10 MG TABLET PO ×2 (13:42→17:14)
[2023-04-09] MEDS: amLODIPine BESYLATE 5 MG TABLET PO (13:42)
[2023-04-09] MEDS: LOSARTAN POTASSIUM 50 MG TABLET PO ×2 (13:42→19:56)
[2023-04-09] MEDS: CLOBETASOL PROPIONATE 0.05% CREAM 15 GM 1 APPLIC TOPICAL (13:43)
[2023-04-09] MEDS: MICONAZOLE NITRATE 2% CREAM 30 GM TUBE 1 APPLIC TOPICAL (13:43)
[2023-04-09] MEDS: busPIRone HCL 5 MG TABLET PO ×2 (13:43→17:14)
[2023-04-09 14:00] VITALS: BP 120/60; PULSE 112; RESP 18; TEMP 36.6; O2SAT 92
[2023-04-09 16:55] LABS: Basophils Percent Auto 0.4 % (0.2-1.2); Eosinophils Absolute Auto 0.4 K/mm3 (0-0.3); Eosinophils Percent Auto 3.9 % (0-4.4); Hematocrit 38.3 % (37.0-47.0); Hemoglobin 12.6 g/dL (12.0-15.0); Immature Granulocyte Absolute 0.02 K/mm3 (0.00-0.031); Immature Granulocyte Percent A 0.2 % (0-0.5); Lymphocytes Absolute Auto 0.94 K/mm3 (0.9-3.2); Lymphocytes Percent Auto 8.3 % (18.3-44.2); Mean Corpuscular HGB Conc 32.9 g/dl (32-36); Mean Corpuscular Hemoglobin 32.2 pg (26-34); Mean Platelet Volume 9.3 fl (7.4-10.4); Monocytes Absolute Auto 0.5 K/mm3 (0.1-0.6); Monocytes Percent Auto 4.7 % (2.6-8.5); Neutrophils Absolute Auto 9.3 K/mm3 (1.3-6.7); Neutrophils Percent Auto 82.5 % (45.5-73.1); Platelet Count Result 227 k/mm3 (150-375); Red Blood Count 3.91 M/mm3 (4.2-5.4); White Blood Count 11.3 K/mm3 (4.5-10.0)
[2023-04-09 17:05] LABS: Prothrombin Time 14.1 Seconds (11.1-14.7)
[2023-04-09 17:06] LABS: Partial Thromboplastin Time 28.9 SECONDS (22.3-36.8)
[2023-04-09] MEDS: HEPARIN SODIUM 5,000 UNITS/ML VIAL 4000 UNITS IV PUSH (17:10)
[2023-04-09] MEDS: HEPARIN SOD/D5W 100 UNITS/ML 25,000 UNITS/250 ML BAG 9 UNITS IV CONT (17:20)
[2023-04-09] MEDS: BETAMETHASONE/CLOTRIMAZOLE CR 45 GM TUBE 1 APPLIC TOPICAL (19:56)
[2023-04-09] MEDS: MELATONIN 5 MG TABLET PO (19:56)
[2023-04-09] MEDS: HYDROcodone/acetaminophen (*CRX) 5-325 MG TABLET 1 TAB PO (20:00)
[2023-04-09 22:00] VITALS: BP 127/46; PULSE 91; RESP 14; TEMP 37.6; O2SAT 90
[2023-04-10 00:36] LABS: Partial Thromboplastin Time 182.5 SECONDS (22.3-36.8)
[2023-04-10] MEDS: MORPHINE SULFATE (*CRX) 4 MG/ML INJ 1 MG IV PUSH ×4 (01:36→21:33)
[2023-04-10] MEDS: SODIUM CHLORIDE 0.9% IV 1,000 ML 125 ML IV CONT ×3 (06:06→23:12)
[2023-04-10 08:46] LABS: Basophils Percent Auto 0.3 % (0.2-1.2); Eosinophils Absolute Auto 0.3 K/mm3 (0-0.3); Eosinophils Percent Auto 3.3 % (0-4.4); Hematocrit 35.4 % (37.0-47.0); Hemoglobin 11.8 g/dL (12.0-15.0); Immature Granulocyte Absolute 0.04 K/mm3 (0.00-0.031); Immature Granulocyte Percent A 0.4 % (0-0.5); Lymphocytes Absolute Auto 0.77 K/mm3 (0.9-3.2); Mean Corpuscular HGB Conc 33.3 g/dl (32-36); Mean Corpuscular Hemoglobin 32.6 pg (26-34); Mean Corpuscular Volume 97.8 fl (80-100); Mean Platelet Volume 9.5 fl (7.4-10.4); Monocytes Absolute Auto 0.6 K/mm3 (0.1-0.6); Neutrophils Absolute Auto 7.9 K/mm3 (1.3-6.7); Platelet Count Result 189 k/mm3 (150-375); Red Blood Count 3.62 M/mm3 (4.2-5.4); Red Cell Distribution Width 13.9 % (11.5-14.5); White Blood Count 9.6 K/mm3 (4.5-10.0)
[2023-04-10 08:53] LABS: Alanine Aminotransferase 26 U/L (6-35); Alkaline Phosphatase 88 U/L (38-126); Anion Gap 6 mmol/L (8-16); Aspartate Amino Transferase 42 U/L (14-36); Bilirubin,Total 0.5 mg/dL (0.2-1.3); Blood Urea Nitrogen 12 mg/dL (7-17); Calcium 7.7 mg/dL (8.4-10.2); Carbon Dioxide 26 mmol/L (22-30); Chloride 103 mmol/L (98-107); Estimated CRCL calculation 31 ml/min; Estimated Glomerular Filt Rate 60; Glucose 104 mg/dL (65-110); Magnesium 1.8 mg/dL (1.6-2.3); Potassium 3.6 mmol/L (3.4-5.0); Sodium 135 mmol/L (137-145)
[2023-04-10 09:00] LABS: Partial Thromboplastin Time 96.2 SECONDS (22.3-36.8)
[2023-04-10 10:10] VITALS: PULSE 88
[2023-04-10] MEDS: CLOBETASOL PROPIONATE 0.05% CREAM 15 GM 1 APPLIC TOPICAL ×2 (10:10→21:17)
[2023-04-10] MEDS: amLODIPine BESYLATE 5 MG TABLET PO (10:10)
[2023-04-10] MEDS: MICONAZOLE NITRATE 2% CREAM 30 GM TUBE 1 APPLIC TOPICAL ×2 (10:10→21:16)
[2023-04-10] MEDS: FUROSEMIDE 40 MG TABLET PO (10:10)
[2023-04-10] MEDS: LOSARTAN POTASSIUM 50 MG TABLET PO ×2 (10:10→21:25)
[2023-04-10] MEDS: COLCHICINE 0.6 MG TABLET PO (10:10)
[2023-04-10] MEDS: MUPIROCIN 2% OINT 22 GM TUBE 1 APPLIC TOPICAL (10:10)
[2023-04-10] MEDS: THERAPEUTIC MULTIVITAMINS/MINERALS TAB (*BKC) 1 TABLET PO (10:10)
[2023-04-10] MEDS: MONTELUKAST SODIUM 10 MG TABLET PO (10:10)
[2023-04-10] MEDS: BETAMETHASONE/CLOTRIMAZOLE CR 45 GM TUBE 1 APPLIC TOPICAL ×2 (10:10→21:15)
[2023-04-10] MEDS: busPIRone HCL 5 MG TABLET PO ×2 (10:10→17:49)
[2023-04-10] MEDS: METOPROLOL SUCCINATE EXT REL 50 MG TABCR PO (10:10)
[2023-04-10] MEDS: FAMOTIDINE 10 MG TABLET PO ×2 (10:10→17:49)
--- NOTE | 2023-04-10 11:00 | PM.IMPN ---
Progress Note: A&P Assessment and Plan (1) Unwitnessed fall: Code(s): R29.6 - Repeated falls Status: Acute Assessment and Plan: Reported: ambulated to the bathroom with her walker where she had an unwitnessed fall Most likely from UTI and mental status Hip xray found left hip fracture fall precautions PT/OT when appropriate (2) Acute UTI: Code(s): N39.0 - Urinary tract infection, site not specified Status: Inactive Assessment and Plan: UA appears to be infectious Ceftriaxone for now Culture grew ecoli trend urine output urinary catheter (3) Closed subcapital fracture of left femur: Qualifiers: Encounter type: initial encounter Qualified Code(s): S72.012A - Unspecified intracapsular fracture of left femur, initial encounter for closed fracture Code(s): S72.012A - Unspecified intracapsular fracture of left femur, initial encounter for closed fracture Status: Acute Assessment and Plan: Hip xray indicated left femur fracture Dr. Burrows has been consulted and he recommends percutaneous pin fixation. Post op care per ortho Awaiting further instructions as concern for skin disease Pain medications DVT prophylaxis would be deferred however was found to have a DVT (4) Left leg cellulitis: Code(s): L03.116 - Cellulitis of left lower limb Status: Acute Assessment and Plan: Notable reddened area with swelling Cellulitis noted Possibly related to scratching and multiple wound areas Ceftriaxone for cellulitis for now Trend symptoms (5) Dermatitis: Code(s): L30.9 - Dermatitis, unspecified Status: Acute Assessment and Plan: Wound nurse contacted Appearance inline with with dermatitis Lotrisone cream ordered Wound consult Trend symptoms and appearance (6) Dementia: Qualifiers: Dementia behavioral or psychological symptom: without behavioral, psychotic, or mood disturbance or anxiety Dementia severity: unspecified severity Dementia type: unspecified type Qualified Code(s): F03.90 - Unspecified dementia, unspecified severity, without behavioral disturbance, psychotic disturbance, mood disturbance, and anxiety Code(s): F03.90 - Unspecified dementia, unspecified severity, without behavioral disturbance, psychotic disturbance, mood disturbance, and anxiety Status: Acute Assessment and Plan: Initiate fall precautions. Monitor closely for symptoms of delirium Stable Trend mood and mentation promote good sleep wake cycle (7) Hypertension: Qualifiers: Hypertension type: primary hypertension Qualified Code(s): I10 - Essential (primary) hypertension Code(s): I10 - Essential (primary) hypertension Status: Acute Assessment and Plan: BP 127/46 Continue home medications Trend BP Adjust therapy as indicated (8) Acute DVT (deep venous thrombosis): Qualifiers: Affected thrombotic vein of extremity: popliteal DVT location: lower extremity Laterality: left Qualified Code(s): I82.432 - Acute embolism and thrombosis of left popliteal vein Code(s): I82.409 - Acute embolism and thrombosis of unspecified deep veins of unspecified lower extremity Status: Acute Assessment and Plan: Venous Doppler note DVT int he left popliteal and peroneal veins Heparin gtt started will need to be transitioned to DOAC at discharge stable at this time Time Spent With Patient Time: 48 minutes Time with patient: Greater than 35 minutes Subjective Date/time seen: 04/10/23 1100 Interval history: 04/10/23 1100 Patient is lying in bed. Patient stated that she was doing okay. She was say yes to everything and asked her but then would refer to her hip. Unable to get a compl
--- NOTE | 2023-04-10 11:00 | P.PNIM_ITS ---
Progress Note: A&P Assessment and Plan (1) Unwitnessed fall: Code(s): R29.6 - Repeated falls Status: Acute Assessment and Plan: * Reported: ambulated to the bathroom with her walker where she had an unwitnessed fall * Most likely from UTI and mental status * Hip xray found left hip fracture * fall precautions * PT/OT when appropriate (2) Acute UTI: Code(s): N39.0 - Urinary tract infection, site not specified Status: Inactive Assessment and Plan: * UA appears to be infectious * Ceftriaxone for now * Culture grew ecoli * trend urine output * urinary catheter (3) Closed subcapital fracture of left femur: Qualifiers: Encounter type: initial encounter Qualified Code(s): S72.012A - Unspecified intracapsular fracture of left femur, initial encounter for closed fracture Code(s): S72.012A - Unspecified intracapsular fracture of left femur, initial encounter for closed fracture Status: Acute Assessment and Plan: * Hip xray indicated left femur fracture * Dr. Burrows has been consulted and he recommends percutaneous pin fixation. * Post op care per ortho * Awaiting further instructions as concern for skin disease * Pain medications * DVT prophylaxis would be deferred however was found to have a DVT (4) Left leg cellulitis: Code(s): L03.116 - Cellulitis of left lower limb Status: Acute Assessment and Plan: * Notable reddened area with swelling * Cellulitis noted * Possibly related to scratching and multiple wound areas * Ceftriaxone for cellulitis for now * Trend symptoms (5) Dermatitis: Code(s): L30.9 - Dermatitis, unspecified Status: Acute Assessment and Plan: * Wound nurse contacted * Appearance inline with with dermatitis * Lotrisone cream ordered * Wound consult * Trend symptoms and appearance (6) Dementia: Qualifiers: Dementia behavioral or psychological symptom: without behavioral, psychotic, or mood disturbance or anxiety Dementia severity: unspecified severity Dementia type: unspecified type Qualified Code(s): F03.90 - Unspecified dementia, unspecified severity, without behavioral disturbance, psychotic disturbance, mood disturbance, and anxiety Code(s): F03.90 - Unspecified dementia, unspecified severity, without behavioral disturbance, psychotic disturbance, mood disturbance, and anxiety Status: Acute Assessment and Plan: * Initiate fall precautions. * Monitor closely for symptoms of delirium * Stable * Trend mood and mentation * promote good sleep wake cycle (7) Hypertension: Qualifiers: Hypertension type: primary hypertension Qualified Code(s): I10 - Essential (primary) hypertension Code(s): I10 - Essential (primary) hypertension Status: Acute Assessment and Plan: * BP 127/46 * Continue home medications * Trend BP * Adjust therapy as indicated (8) Acute DVT (deep venous thrombosis): Qualifiers: Affected thrombotic vein of extremity: popliteal DVT location: lower extremity Laterality: left Qualified Code(s): I82.432 - Acute embolism and t hrombosis of left popliteal vein Code(s): I82.409 - Acute emboli
[2023-04-10 14:00] VITALS: BP 123/49; PULSE 94; RESP 14; TEMP 36.9; O2SAT 92
[2023-04-10] MEDS: LORazepam INJ (*CRX) 2 MG/ML VIAL 0.5 MG IV PUSH (14:55)
[2023-04-10 20:00] VITALS: PULSE 89; RESP 18; O2SAT 91
[2023-04-10] MEDS: MELATONIN 5 MG TABLET PO (21:26)
[2023-04-10 21:57] VITALS: BP 110/60; PULSE 89; RESP 18; TEMP 37.1; O2SAT 91
[2023-04-11] VITALS (13 sets, daily range): BP systolic 109–146; BP diastolic 43–78; PULSE 58–94; RESP 14–19; TEMP 36.2–36.9; O2SAT 92–100
[2023-04-11] MEDS: HEPARIN SOD/D5W 100 UNITS/ML 25,000 UNITS/250 ML BAG 8 UNITS IV CONT (01:14)
[2023-04-11 06:29] LABS: Basophils Percent Auto 0.4 % (0.2-1.2); Eosinophils Absolute Auto 0.5 K/mm3 (0-0.3); Eosinophils Percent Auto 5.9 % (0-4.4); Hematocrit 34.9 % (37.0-47.0); Hemoglobin 11.5 g/dL (12.0-15.0); Immature Granulocyte Absolute 0.03 K/mm3 (0.00-0.031); Immature Granulocyte Percent A 0.4 % (0-0.5); Lymphocytes Absolute Auto 1.07 K/mm3 (0.9-3.2); Lymphocytes Percent Auto 13.1 % (18.3-44.2); Mean Corpuscular Hemoglobin 31.9 pg (26-34); Mean Corpuscular Volume 96.7 fl (80-100); Mean Platelet Volume 9.8 fl (7.4-10.4); Monocytes Absolute Auto 0.7 K/mm3 (0.1-0.6); Monocytes Percent Auto 8.7 % (2.6-8.5); Neutrophils Absolute Auto 5.8 K/mm3 (1.3-6.7); Neutrophils Percent Auto 71.5 % (45.5-73.1); Platelet Count Result 204 k/mm3 (150-375); Red Blood Count 3.61 M/mm3 (4.2-5.4); Red Cell Distribution Width 13.9 % (11.5-14.5); White Blood Count 8.1 K/mm3 (4.5-10.0)
[2023-04-11 06:35] LABS: Alanine Aminotransferase 25 U/L (6-35); Albumin Level 3.1 g/dL (3.5-5.1); Alkaline Phosphatase 89 U/L (38-126); Anion Gap 8 mmol/L (8-16); Aspartate Amino Transferase 43 U/L (14-36); Bilirubin,Total 0.7 mg/dL (0.2-1.3); Blood Urea Nitrogen 10 mg/dL (7-17); Calcium 7.8 mg/dL (8.4-10.2); Carbon Dioxide 25 mmol/L (22-30); Chloride 103 mmol/L (98-107); Estimated CRCL calculation 36 ml/min; Estimated Glomerular Filt Rate > 60; Glucose 94 mg/dL (65-110); Magnesium 1.7 mg/dL (1.6-2.3); Potassium 3.7 mmol/L (3.4-5.0); Sodium 136 mmol/L (137-145)
[2023-04-11 06:36] LABS: Partial Thromboplastin Time 88.1 SECONDS (22.3-36.8)
[2023-04-11] MEDS: amLODIPine BESYLATE 5 MG TABLET PO (08:38)
[2023-04-11] MEDS: busPIRone HCL 5 MG TABLET PO ×2 (08:39→18:13)
[2023-04-11] MEDS: MAGNESIUM SULF 2 GM/WATER 50ML 2 GM/50 ML BAG IVPB (08:39)
[2023-04-11] MEDS: METOPROLOL SUCCINATE EXT REL 50 MG TABCR PO (08:39)
[2023-04-11] MEDS: SODIUM CHLORIDE 0.9% IV 1,000 ML 125 ML IV CONT ×2 (08:40→23:49)
--- NOTE | 2023-04-11 10:15 | PM.IMPN ---
Progress Note: A&P Assessment and Plan (1) Unwitnessed fall: Code(s): R29.6 - Repeated falls Status: Acute Assessment and Plan: Reported: ambulated to the bathroom with her walker where she had an unwitnessed fall Most likely from UTI and mental status Hip xray found left hip fracture Surgical procedure scheduled for today Heparin should be turned off at 11am fall precautions PT/OT when appropriate (2) Acute UTI: Code(s): N39.0 - Urinary tract infection, site not specified Status: Inactive Assessment and Plan: UA appears to be infectious Ceftriaxone for now day 3 Culture grew ecoli trend urine output urinary catheter (3) Closed subcapital fracture of left femur: Qualifiers: Encounter type: initial encounter Qualified Code(s): S72.012A - Unspecified intracapsular fracture of left femur, initial encounter for closed fracture Code(s): S72.012A - Unspecified intracapsular fracture of left femur, initial encounter for closed fracture Status: Acute Assessment and Plan: Hip xray indicated left femur fracture Dr. Burrows has been consulted and he recommends percutaneous pin fixation. Post op care per ortho Awaiting further instructions as concern for skin disease Pain medications surgical intervention scheduled for today Heparin off at 11am in preparation of surgery DVT prophylaxis would be deferred however was found to have a DVT (4) Left leg cellulitis: Code(s): L03.116 - Cellulitis of left lower limb Status: Acute Assessment and Plan: Notable reddened area with swelling Cellulitis noted, getting better Possibly related to scratching and multiple wound areas Ceftriaxone for cellulitis for now Trend symptoms (5) Dermatitis: Code(s): L30.9 - Dermatitis, unspecified Status: Acute Assessment and Plan: Wound nurse contacted Appearance inline with with dermatitis Lotrisone cream ordered Wound consult Trend symptoms and appearance Seems to continue to improve (6) Dementia: Qualifiers: Dementia behavioral or psychological symptom: without behavioral, psychotic, or mood disturbance or anxiety Dementia severity: unspecified severity Dementia type: unspecified type Qualified Code(s): F03.90 - Unspecified dementia, unspecified severity, without behavioral disturbance, psychotic disturbance, mood disturbance, and anxiety Code(s): F03.90 - Unspecified dementia, unspecified severity, without behavioral disturbance, psychotic disturbance, mood disturbance, and anxiety Status: Acute Assessment and Plan: Initiate fall precautions. Monitor closely for symptoms of delirium Stable Trend mood and mentation promote good sleep wake cycle (7) Hypertension: Qualifiers: Hypertension type: primary hypertension Qualified Code(s): I10 - Essential (primary) hypertension Code(s): I10 - Essential (primary) hypertension Status: Acute Assessment and Plan: BP 143/71 Continue home medications Trend BP Adjust therapy as indicated (8) Acute DVT (deep venous thrombosis): Qualifiers: Affected thrombotic vein of extremity: popliteal DVT location: lower extremity Laterality: left Qualified Code(s): I82.432 - Acute embolism and thrombosis of left popliteal vein Code(s): I82.409 - Acute embolism and thrombosis of unspecified deep veins of unspecified lower extremity Status: Acute Assessment and Plan: Venous Doppler note DVT int he left popliteal and peroneal veins Heparin gtt started, turn off at 11am will need to be transitioned to DOAC at discharge stable at this time Time Spent With Patient Time: 48 minutes Time with patient: Greater than 35 minutes Subjective
--- NOTE | 2023-04-11 13:08 | PC.NURSE ---
Heparin drip stopped at 1102 per provider for surgery.
--- NOTE | 2023-04-11 14:59 | WPDANESEPPF ---
Anes - Initial Pre Proc Eval Procedure: Operation Date: 04/11/23 15:00 Proposed Procedures p Left Hip Pinning - Ramiro Burrows MD Date/Time: 04/11/23 14:59 Surgeon: Brando Bowser MD Pre Op Diagnosis: Left Hip Fracture Patient Data Age: 87 Gender: F Height: 1.63 m Weight: 51.3 kg Last Vital Signs Temp 36.9 C 04/11/23 06:00 Pulse 80 04/11/23 08:39 Resp 18 04/11/23 06:00 BP 143/71 H 04/11/23 06:00 Pulse Ox 94 04/11/23 06:00 O2 Del Method Room Air 04/11/23 08:00 Allergies Allergy/AdvReac Type Severity Reaction Status Date / Time nitrofurantoin Allergy Unknown Other Verified 08/23/22 00:33 [From Macrobid] Sulfa (Sulfonamide Allergy Unknown Other Verified 08/23/22 00:33 Antibiotics) amoxicillin [From Augmentin] Allergy Unknown Verified 04/08/23 05:34 clavulanic acid Allergy Unknown Verified 04/08/23 05:34 [From Augmentin] prochlorperazine Allergy Unknown Verified 04/08/23 05:34 [From Compazine] Home Medications Medication Instructions Recorded Confirmed Type Preparation H 1 inch RECTAL PRN PRN Hemorrhoids 04/08/23 04/08/23 History acetaminophen 325 mg tablet 325 mg PO PRN PRN Pain, Mild 04/08/23 04/08/23 History amlodipine 5 mg tablet 5 mg PO DAILY 04/08/23 04/08/23 History aspirin 81 mg tablet 81 mg PO DAILY 04/08/23 04/08/23 History benzonatate 100 mg capsule 100 mg PO PRN PRN Cough 04/08/23 04/08/23 History buspirone 5 mg tablet 5 mg PO BID 04/08/23 04/08/23 History cholecalciferol (vitamin D3) 25 25 mcg PO DAILY 04/08/23 04/08/23 History mcg (1,000 unit) tablet (Vitamin D3) clobetasol 0.05 % topical cream 1 applic topical BID 04/08/23 04/08/23 History colchicine 0.6 mg tablet 0.6 mg PO DAILY 04/08/23 04/08/23 History cranberry extract 425 mg capsule 425 mg PO DAILY 04/08/23 04/08/23 History famotidine 10 mg tablet 10 mg PO BID 04/08/23 04/08/23 History furosemide 40 mg tablet 40 mg PO DAILY 04/08/23 04/08/23 History ketoconazole 2 % topical cream 1 applic topical BID 04/08/23 04/08/23 History losartan 50 mg tablet 50 mg PO BID 04/08/23 04/08/23 History melatonin 5 mg tablet 5 mg PO DAILY 04/08/23 04/08/23 History metoprolol succinate 50 mg 50 mg PO DAILY 04/08/23 04/08/23 History tablet,extended release 24 hr montelukast 10 mg tablet 10 mg PO DAILY 04/08/23 04/08/23 History multivitamin with minerals (Daily 1 tablet PO DAILY 04/08/23 04/08/23 History Multivitamin-Minerals tablet) mupirocin 2 % topical ointment 1 applic topical PRN PRN BLE 04/08/23 04/08/23 History redness permethrin 5 % topical cream 1 applic topical WEEKLY 04/08/23 04/08/23 History sennosides 8.6 mg tablet 8.6 mg PO PRN PRN Constipation 04/08/23 04/08/23 History Laboratory Tests 04/10/23 04/11/23 15:35 06:18 WBC 8.1 K/mm3 (4.5-10.0) RBC 3.61 L M/mm3 (4.2-5.4) Hgb 11.5 L g/dL (12.0-15.0) Hct 34.9 L % (37.0-47.0) MCV 96.7 fl (80-100) MCH 31.9 pg (26-34) MCHC 33.0 g/dl (32-36) RDW 13.9 % (11.5-14.5) Plt Count 204 k/mm3 (150-375) MPV 9.8 fl (7.4-10.4) Immature Gran % (Auto) 0.4 % (0-0.5) Neut % (Auto) 71.5 % (45.5-73.1) Lymph % (Auto) 13.1 L % (18.3-44.2) [place] % (Auto) 8.7 H % (2.6-8.5) Eos % (Auto) 5.9 H % (0-4.4) Baso % (Auto) 0.4 % (0.2-1.2) Lymph # (Auto) 1.07 K/mm3 (0.9-3.2) [place] # (Auto) 0.7 H K/mm3 (0.1-0.6) Eos # (Auto) 0.5 H K/mm3 (0-0.3) Baso # (Auto) 0.0 K/mm3 (0.0-0.1) Abs Immat Gran (auto) 0.03 K/mm3 (0.00-0.031) Absolute Neuts (auto) 5.8 K/mm3 (1.3-6.7) Absolute Nucleated RBC 0.0 K/mm3 (0.0-0.012) Nucleated RBC % 0.0 % (0.0-0.2) APTT 82.0 H SECONDS 88.1 H SECONDS (22.3-36.8) (22.3-36.8) Sodium 136 L mmol/L (137-145) Potassium 3.7 mmol/L (3.4-5.0) Chloride 103 mmol/L (98-107) Carbon Dioxide 25 m
--- NOTE | 2023-04-11 15:04 | WPDHPUPDATE1 ---
History and Physical Update Update Date/Time: 04/11/23 15:04 History and Physical has been reviewed, including an updated exam of the patient. There are NO changes in the patient's condition. Risks, benefits, and alternatives have been discussed and questions answered. Patient agrees to proceed with procedure.
[2023-04-11] MEDS: LACTATED RINGERS 1,000 ML 30 ML IV CONT (15:15)
[2023-04-11] MEDS: BUPIVACAINE/EPINEPHRINE 0.5% 50 ML VIAL 20 ML INFILTRATE (15:57)
--- NOTE | 2023-04-11 16:27 | P.OP_ITS ---
Procedure Note - Detailed Date of Procedure 04/11/23 Pre-op Diagnosis Left hip valgus impacted femoral neck fracture. Post-op Diagnosis Same Procedure Performed Percutaneous pinning left hip impacted nondisplaced femoral neck fracture. Surgeon Ramiro Burrows MD Anesthesia General Description of Procedure Preoperative antibiotics were given. The patient was brought to the operating room. In general anesthetic was administered. The patient was carefully placed on the fracture table. By planar fluoroscopy was used to confirm maintenance of reduction and treatment of reduction as necessary. The hip was prepped and draped in usual sterile fashion with a sterile curtain. A stab incision was created at the inferior trochanter. The guide pin was placed into the center of the femoral neck inferiorly. Two additional guide pins were placed superiorly were inverted triangle shape. Measurements were taken and the outer cortex was drilled. Three partially-threaded cannulated screws were placed. The crease incisions were closed with interrupted 4-0 Monocryl suture followed by Steri- Strips. The sterile dressing was applied. The patient was transferred to the recovery room in stable condition and extubated. There were no complications. Implants 7.3 mm stainless steel partially-threaded 16 mm Synthes screws x3. 90 mm, and 75 mm x 2. Estimated Blood Loss 5 Complications No immediate complications Condition Stable Disposition PACU [facility] Billing Surgery - Charge Forward: Surgery Billing
[2023-04-11] MEDS: fentaNYL CITRATE INJ (*CRX) 100 MCG/2 ML VIAL 25 MCG IV PUSH (17:00)
[2023-04-11] MEDS: FAMOTIDINE 10 MG TABLET PO (18:14)
[2023-04-11] MEDS: MELATONIN 5 MG TABLET PO (21:29)
[2023-04-11] MEDS: LOSARTAN POTASSIUM 50 MG TABLET PO (21:29)
[2023-04-11] MEDS: MICONAZOLE NITRATE 2% CREAM 30 GM TUBE 1 APPLIC TOPICAL (21:31)
[2023-04-11] MEDS: BETAMETHASONE/CLOTRIMAZOLE CR 45 GM TUBE 1 APPLIC TOPICAL (21:32)
[2023-04-11] MEDS: CLOBETASOL PROPIONATE 0.05% CREAM 15 GM 1 APPLIC TOPICAL (21:32)
[2023-04-12 03:37] VITALS: BP 133/74; PULSE 79; RESP 18; TEMP 36.4; O2SAT 95
[2023-04-12 06:10] LABS: Basophils Percent Auto 0.1 % (0.2-1.2); Hematocrit 39.3 % (37.0-47.0); Hemoglobin 13.2 g/dL (12.0-15.0); Immature Granulocyte Absolute 0.02 K/mm3 (0.00-0.031); Immature Granulocyte Percent A 0.3 % (0-0.5); Lymphocytes Absolute Auto 0.33 K/mm3 (0.9-3.2); Lymphocytes Percent Auto 4.6 % (18.3-44.2); Mean Corpuscular HGB Conc 33.6 g/dl (32-36); Mean Corpuscular Volume 95.2 fl (80-100); Mean Platelet Volume 9.8 fl (7.4-10.4); Monocytes Absolute Auto 0.3 K/mm3 (0.1-0.6); Monocytes Percent Auto 4.2 % (2.6-8.5); Neutrophils Absolute Auto 6.6 K/mm3 (1.3-6.7); Neutrophils Percent Auto 90.8 % (45.5-73.1); Platelet Count Result 239 k/mm3 (150-375); Red Blood Count 4.13 M/mm3 (4.2-5.4); Red Cell Distribution Width 13.6 % (11.5-14.5); White Blood Count 7.2 K/mm3 (4.5-10.0)
[2023-04-12 06:20] LABS: Alanine Aminotransferase 35 U/L (6-35); Albumin Level 3.7 g/dL (3.5-5.1); Alkaline Phosphatase 119 U/L (38-126); Anion Gap 12 mmol/L (8-16); Aspartate Amino Transferase 58 U/L (14-36); Bilirubin,Total 0.7 mg/dL (0.2-1.3); Blood Urea Nitrogen 13 mg/dL (7-17); Calcium 8.4 mg/dL (8.4-10.2); Carbon Dioxide 20 mmol/L (22-30); Chloride 105 mmol/L (98-107); Estimated CRCL calculation 50 ml/min; Estimated Glomerular Filt Rate > 60; Glucose 127 mg/dL (65-110); Magnesium 2.4 mg/dL (1.6-2.3); Potassium 3.7 mmol/L (3.4-5.0); Sodium 137 mmol/L (137-145)
[2023-04-12 06:49] LABS: Burr Cells 2+ (NORMAL); Platelet Estimate Adequate (Adequate); Schistocytes None Seen (NORMAL)
[2023-04-12 07:37] VITALS: BP 129/77; PULSE 70; RESP 14; TEMP 36.4; O2SAT 95
[2023-04-12] MEDS: amLODIPine BESYLATE 5 MG TABLET PO (08:12)
[2023-04-12] MEDS: MICONAZOLE NITRATE 2% CREAM 30 GM TUBE 1 APPLIC TOPICAL (08:13)
[2023-04-12] MEDS: BETAMETHASONE/CLOTRIMAZOLE CR 45 GM TUBE 1 APPLIC TOPICAL (08:13)
[2023-04-12] MEDS: busPIRone HCL 5 MG TABLET PO (08:14)
[2023-04-12] MEDS: COLCHICINE 0.6 MG TABLET PO (08:15)
[2023-04-12] MEDS: FAMOTIDINE 10 MG TABLET PO (08:15)
[2023-04-12] MEDS: FUROSEMIDE 40 MG TABLET PO (08:15)
[2023-04-12] MEDS: LOSARTAN POTASSIUM 50 MG TABLET PO (08:16)
[2023-04-12] MEDS: MONTELUKAST SODIUM 10 MG TABLET PO (08:16)
[2023-04-12] MEDS: THERAPEUTIC MULTIVITAMINS/MINERALS TAB (*BKC) 1 TABLET PO (08:17)
[2023-04-12 08:20] VITALS: PULSE 68
[2023-04-12] MEDS: METOPROLOL SUCCINATE EXT REL 50 MG TABCR PO (08:20)
[2023-04-12] MEDS: CLOBETASOL PROPIONATE 0.05% CREAM 15 GM 1 APPLIC TOPICAL (08:23)
--- NOTE | 2023-04-12 10:47 | WPDANESPN ---
Anes - Prog Note Post-Op Date/Time: 04/12/23 10:47 Cardiovascular status: normal Respiratory status: normal Airway patency: baseline Mental status: baseline Post-Op hydration status: normal Vital Signs: Last Vital Signs Temp 36.4 C L 04/12/23 07:37 Pulse 68 04/12/23 08:20 Resp 14 04/12/23 07:37 BP 129/77 04/12/23 07:37 Pulse Ox 95 04/12/23 07:37 O2 Del Method Room Air 04/12/23 08:25 O2 Flow Rate 2 04/11/23 23:00 FiO2 28 04/11/23 23:00 Pain Score (VAS): 08/30 I/O: Intake & Output 04/11/23 04/12/23 04/12/23 23:59 07:59 15:59 Intake Total 300 400 220 Output Total 100 600 Balance 200 -200 220 Laboratory Tests 04/12/23 05:56 04/12/23 05:56 04/12/23 05:56 WBC 7.2 RBC 4.13 L Hgb 13.2 Hct 39.3 MCV 95.2 MCH 32.0 MCHC 33.6 RDW 13.6 Plt Count 239 MPV 9.8 Immature Gran % (Auto) 0.3 Neut % (Auto) 90.8 H Lymph % (Auto) 4.6 L [place] % (Auto) 4.2 Eos % (Auto) 0.0 Baso % (Auto) 0.1 L Lymph # (Auto) 0.33 L [place] # (Auto) 0.3 Eos # (Auto) 0.0 Baso # (Auto) 0.0 Abs Immat Gran (auto) 0.02 Absolute Neuts (auto) 6.6 Absolute Nucleated RBC 0.0 Nucleated RBC % 0.0 Platelet Estimate Adequate [place] Cells 2+ Schistocytes None seen Sodium 137 Potassium 3.7 Chloride 105 Carbon Dioxide 20 L Anion Gap 12 BUN 13 Creatinine 0.60 L Estim Creat Clear Calc 50 Estimated GFR > 60 Glucose 127 H Calcium 8.4 Magnesium 2.4 H Total Bilirubin 0.7 AST 58 H ALT 35 Alkaline Phosphatase 119 Total Protein 7.0 Albumin 3.7 Post-procedural complaints: none Patient Feedback: Patient satisfied with anesthetic care.
[2023-04-12 11:00] VITALS: BP 141/45; PULSE 96; RESP 14; TEMP 36.9; O2SAT 91
--- NOTE | 2023-04-12 13:42 | P.DS_ITS ---
DS: Admitting Diagnosis Discharge Date 04/12/23 Admitting Diagnosis Fall, left hip fracture DS: Discharge Diagnosis Discharge Diagnosis (1) Unwitnessed fall: Code(s): R29.6 - Repeated falls Status: Acute Assessment and Plan: * Reported: ambulated to the bathroom with her walker where she had an unwitnessed fall * Most likely from UTI and mental status * Hip xray found left hip fracture * Surgical procedure scheduled for today * Heparin should be turned off at 11am * fall precautions * PT/OT when appropriate (2) Acute UTI: Code(s): N39.0 - Urinary tract infection, site not specified Status: Inactive Assessment and Plan: * UA appears to be infectious * Ceftriaxone for now day 3 * Culture grew ecoli * trend urine output * urinary catheter (3) Closed subcapital fracture of left femur: Qualifiers: Encounter type: initial encounter Qualified Code(s): S72.012A - Unspecified intracapsular fracture of left femur, initial encounter for closed fracture Code(s): S72.012A - Unspecified intracapsular fracture of left femur, initial encounter for closed fracture Status: Acute Assessment and Plan: * Hip xray indicated left femur fracture * Dr. Burrows has been consulted and he recommends percutaneous pin fixation. * Post op care per ortho * Awaiting further instructions as concern for skin disease * Pain medications * surgical intervention scheduled for today * Heparin off at 11am in preparation of surgery * DVT prophylaxis would be deferred however was found to have a DVT (4) Left leg cellulitis: Code(s): L03.116 - Cellulitis of left lower limb Status: Acute Assessment and Plan: * Notable reddened area with swelling * Cellulitis noted, getting better * Possibly related to scratching and multiple wound areas * Ceftriaxone for cellulitis for now * Trend symptoms (5) Dermatitis: Code(s): L30.9 - Dermatitis, unspecified Status: Acute Assessment and Plan: * Wound nurse contacted * Appearance inline with with dermatitis * Lotrisone cream ordered * Wound consult * Trend symptoms and appearance * Seems to continue to improve (6) Dementia: Qualifiers: Dementia behavioral or psychological symptom: without behavioral, psychotic, or mood disturbance or anxiety Dementia severity: unspecified severity Dementia type: unspecified type Qualified Code(s): F03.90 - Unspecified dementia, unspecified severity, without behavioral disturbance, psychotic disturbance, mood disturbance, and anxiety Code(s): F03.90 - Unspecified dementia, unspecified severity, without behavioral disturbance, psychotic disturbance, mood disturbance, and anxiety Status: Acute Assessment and Plan: * Initiate fall precautions. * Monitor closely for symptoms of delirium * Stable * Trend mood and mentation * promote good sleep wake cycle (7) Hypertension: Qualifiers: Hypertension type: primary hypertension Qualified Code(s): I10 - Essential (primary) hypertension Code(s): I10 - Essential (primary) hypertension Status: Acute Assessment and Plan: * BP 143/71 * Continue home medications * Trend BP * Adjust therapy
--- NOTE | 2023-04-12 13:42 | PM.DS ---
DS: Admitting Diagnosis Discharge Date 04/12/23 Admitting Diagnosis Fall, left hip fracture DS: Discharge Diagnosis Discharge Diagnosis (1) Unwitnessed fall: Code(s): R29.6 - Repeated falls Status: Acute Assessment and Plan: Reported: ambulated to the bathroom with her walker where she had an unwitnessed fall Most likely from UTI and mental status Hip xray found left hip fracture Surgical procedure scheduled for today Heparin should be turned off at 11am fall precautions PT/OT when appropriate (2) Acute UTI: Code(s): N39.0 - Urinary tract infection, site not specified Status: Inactive Assessment and Plan: UA appears to be infectious Ceftriaxone for now day 3 Culture grew ecoli trend urine output urinary catheter (3) Closed subcapital fracture of left femur: Qualifiers: Encounter type: initial encounter Qualified Code(s): S72.012A - Unspecified intracapsular fracture of left femur, initial encounter for closed fracture Code(s): S72.012A - Unspecified intracapsular fracture of left femur, initial encounter for closed fracture Status: Acute Assessment and Plan: Hip xray indicated left femur fracture Dr. Burrows has been consulted and he recommends percutaneous pin fixation. Post op care per ortho Awaiting further instructions as concern for skin disease Pain medications surgical intervention scheduled for today Heparin off at 11am in preparation of surgery DVT prophylaxis would be deferred however was found to have a DVT (4) Left leg cellulitis: Code(s): L03.116 - Cellulitis of left lower limb Status: Acute Assessment and Plan: Notable reddened area with swelling Cellulitis noted, getting better Possibly related to scratching and multiple wound areas Ceftriaxone for cellulitis for now Trend symptoms (5) Dermatitis: Code(s): L30.9 - Dermatitis, unspecified Status: Acute Assessment and Plan: Wound nurse contacted Appearance inline with with dermatitis Lotrisone cream ordered Wound consult Trend symptoms and appearance Seems to continue to improve (6) Dementia: Qualifiers: Dementia behavioral or psychological symptom: without behavioral, psychotic, or mood disturbance or anxiety Dementia severity: unspecified severity Dementia type: unspecified type Qualified Code(s): F03.90 - Unspecified dementia, unspecified severity, without behavioral disturbance, psychotic disturbance, mood disturbance, and anxiety Code(s): F03.90 - Unspecified dementia, unspecified severity, without behavioral disturbance, psychotic disturbance, mood disturbance, and anxiety Status: Acute Assessment and Plan: Initiate fall precautions. Monitor closely for symptoms of delirium Stable Trend mood and mentation promote good sleep wake cycle (7) Hypertension: Qualifiers: Hypertension type: primary hypertension Qualified Code(s): I10 - Essential (primary) hypertension Code(s): I10 - Essential (primary) hypertension Status: Acute Assessment and Plan: BP 143/71 Continue home medications Trend BP Adjust therapy as indicated (8) Acute DVT (deep venous thrombosis): Qualifiers: DVT location: lower extremity Affected thrombotic vein of extremity: popliteal Laterality: left Qualified Code(s): I82.432 - Acute embolism and thrombosis of left popliteal vein Code(s): I82.409 - Acute embolism and thrombosis of unspecified deep veins of unspecified lower extremity Status: Acute Assessment and Plan: Venous Doppler note DVT int he left popliteal and peroneal veins Heparin gtt started, turn off at 11am will need to be transitioned to DOAC at discharge stable at this time
[2023-04-12 14:58] LABS: EDCOVIDSCREEN Negative (Negative)
--- NOTE | 2023-04-12 16:27 | PC.NURSE ---
Pt is A&O1 female. Pt is A&O to person. Pt was transported to [facility] by [facility]. Pt has been agitated off and on and become combative with staff at various times through out the shift. Pt had no IV access due to pulling them out overnight. Pt was monitored for changes in status while here.
== END 2023-04-12 15:55 | DRG 481 ==
LOC: ANHED 10:54 → ANH3MEDSUR 12:43
PROVIDERS: Nurse Practitioner; Orthopaedic Surgery; Physician Assistant; Admitting Provider Chiropractor; Emergency Provider Emergency Medicine; PCP Family Medicine; Visit Provider Internal Medicine Critical Care Medicine
PROC: 0QH734Z Insertion of Internal Fixation Device into Left Upper Femur, Percutaneous Approach (ICD-10-PCS; principal; 2023-04-11 15:00)
DX: S72.012A Unspecified intracapsular fracture of left femur, initial encounter for closed fracture (principal); I82.432 Acute embolism and thrombosis of left popliteal vein; L03.116 Cellulitis of left lower limb; N39.0 Urinary tract infection, site not specified; I82.452 Acute embolism and thrombosis of left peroneal vein; W19.XXXA Unspecified fall, initial encounter; B96.20 Unspecified Escherichia coli [E. coli] as the cause of diseases classified elsewhere; Z20.822 Contact with and (suspected) exposure to COVID-19; I10 Essential (primary) hypertension; F41.8 Other specified anxiety disorders; K21.9 Gastro-esophageal reflux disease without esophagitis; F03.90 Unspecified dementia, unspecified severity, without behavioral disturbance, psychotic disturbance, mood disturbance, and anxiety; L30.9 Dermatitis, unspecified; M10.9 Gout, unspecified; R29.6 Repeated falls
CPT/HCPCS: 36415; 51702; 70450; 71045; 72125; 73521; 80048; 80053; 81001; 83735; 85025; 85027; 85610; 85730; 87077; 87086; 87186; 87426; 93005; 93970; 96374; 97110; 97161; 97166; 99199; 99285; A9270; C1713; C1769; C9803; J0696; J1100; J1644; J2060; J2270; J2405; J2704; J3010; J3475; J7030; J7120